=== PATIENT | male | born 1945 | race Caucasian/White ===

== ENCOUNTER 2019-07-13 17:23 | Inpatient (IN) | payer OTHER ==
--- NOTE | 2019-07-13 17:37 | PDOC ---
Rapid Medical Evaluation Medical Evaluation: Vital Signs Temp Pulse Resp BP Pulse Ox 98.4 F 65 18 159/93 99 07/13/19 17:31 07/13/19 17:31 07/13/19 17:31 07/13/19 17:31 07/13/19 17:31 I have performed a brief in-person evaluation of this patient. The patient presents with a chief complaint of: hx of DM, CAD s/p PCI c/o SOB and chest pain x 5 days along with mild cough; denies fever, abd pain, n/v, recent travel, known contact with COVID patient; is retired Pertinent physical exam findings: In NAD, lungs clear I have ordered the following: EKG, CXR, labs D/W Dr. Cheng - no need for isolation The patient will proceed to the ED for further evaluation. 07/13/19 17:35
[2019-07-13 17:57] VITALS: BMI 24.3
[2019-07-13 18:51] LABS: BASO % 0.6 % (0-2.0); EOS % 4.6 % (0-4.5); HEMATOCRIT 37.7 % (35.4-49); MCH 26.3 pg (25.7-33.7); MCHC 31.8 g/dl (32.0-35.9); MEAN CELL VOLUME 82.6 fl (80-96); MEAN PLT VOLUME 8.5 fl (7.5-11.1); MONO % 9.5 % (3.8-10.2); NEUT % 61.3 % (42.8-82.8); PLATELET COUNT 162 K/MM3 (134-434); RBC 4.56 M/mm3 (4.00-5.60); RDW 15.5 % (11.9-15.9); WHITE BLOOD COUNT 5.4 K/mm3 (4.0-10.0)
[2019-07-13 19:39] LABS: ALBUMIN 3.8 g/dl (3.4-5.0); ALK PHOS 48 U/L (45-117); ANION GAP 6 MMOL/L (8-16); BILIRUBIN,TOTAL 0.2 mg/dL (0.2-1); BLOOD UREA NITROGEN 24.5 mg/dL (7-18); CALCIUM 8.8 mg/dL (8.5-10.1); CHLORIDE 103 mmol/L (98-107); CO2 28 mmol/L (21-32); CREATININE 0.9 mg/dL (0.55-1.3); GLUCOSE,RANDOM 110 mg/dL (74-106); N-TERMINAL BNP 108.3 pg/ml (5-125); POTASSIUM 4.6 mmol/L (3.5-5.1); SGOT/AST 24 U/L (15-37); SGPT/ALT 30 U/L (13-61); SODIUM 137 mmol/L (136-145); TOT PROT 6.7 g/dl (6.4-8.2)
[2019-07-13] MEDS ORDERED: SODIUM CHLORIDE 1,000 ML IV STA (19:52)
[2019-07-13 20:40] LABS: LIPASE 92 U/L (73-393)
--- NOTE | 2019-07-14 00:08 | HP ---
CHIEF COMPLAINT: shortness of breath; chest pain PCP: HISTORY OF PRESENT ILLNESS: 74 y/o male with PMH of DM, HTN, CAD s/p stents back in october presents to the ED with complaints of shortness of breath, chest pain, body aches, and diarrhea over the past 4-5 days- he states that this started out of nowhere he lives by himself and has not had any recent travel or any recent exposures; he has not attempted to take anything for this pain; the chest pain he states comes and goes and is not worse with respiration; his exercise tolerance has not changed- he endorses abdominal pain and diarrhea (multiple episodes a day no blood or mucus) - ER course was notable for: (1)vitals stable labs; wnl (2)CXR and CTA negative; COVID pending; Flu/RSV negative (3)given NS 500cc bolus x1 Recent Travel: denies PAST MEDICAL HISTORY: see above PAST SURGICAL HISTORY: CAD s/p stents Social History: Smoking:denies Alcohol:denies Drugs: denies Allergies clindamycin Allergy (Verified 07/13/19 17:45) donepezil [From Aricept] Allergy (Verified 07/13/19 17:45) naproxen [From Naprosyn] Allergy (Verified 07/13/19 17:45) Penicillins Allergy (Verified 07/13/19 17:45) HOME MEDICATIONS: REVIEW OF SYSTEMS CONSTITUTIONAL: Present: weakness Absent: fever, chills, diaphoresis, , malaise, loss of appetite, weight change HEENT: Absent: rhinorrhea, nasal congestion, throat pain, throat swelling, difficulty swallowing, mouth swelling, ear pain, eye pain, visual changes CARDIOVASCULAR: Absent: chest pain, syncope, palpitations, irregular heart rate, lightheadedness, peripheral edema RESPIRATORY: Present: shortness of breath Absent: cough, , dyspnea with exertion, orthopnea, wheezing, stridor, hemoptysis GASTROINTESTINAL: Present: abdominal pain, diarrhea Absent: abdominal distension, nausea, vomiting, constipation, melena, hematochezia GENITOURINARY: Absent: dysuria, frequency, urgency, hesitancy, hematuria, flank pain, genital pain MUSCULOSKELETAL: Absent: myalgia, arthralgia, joint swelling, back pain, neck pain SKIN: Absent: rash, itching, pallor HEMATOLOGIC/IMMUNOLOGIC: Absent: easy bleeding, easy bruising, lymphadenopathy, frequent infections ENDOCRINE: Absent: unexplained weight gain, unexplained weight loss, heat intolerance, cold intolerance NEUROLOGIC: Absent: headache, focal weakness or paresthesias, dizziness, unsteady gait, seizure, mental status changes, bladder or bowel incontinence PSYCHIATRIC: Absent: anxiety, depression, suicidal or homicidal ideation, hallucinations. PHYSICAL EXAMINATION Vital Signs - 24 hr 07/13/19 07/13/19 07/13/19 17:31 17:45 20:47 Temperature 98.4 F 97.8 F Pulse Rate 65 64 Pulse Rate [ 65 Left] Respiratory 18 18 18 Rate Blood Pressure 159/93 184/94 H O2 Sat by Pulse 99 100 100 Oximetry (%) GENERAL: Awake, alert, and fully oriented, in no acute distress. EYES:PEERLA; EOMI; no scleral icterus NECK: no JVD; no lymphadenpoathy LUNGS: CTA B/L; no rales, rhonchi or wheezing HEART: RRR s1 s2; no murmurs/rubs/gallops ABDOMEN: Soft, diffuse abodminal tenderness +BS in all 4 quadrants . MUSCULOSKELETAL: Normal range of motion at all joints. No bony deformities or tenderness. No CVA tenderness. EXTREMITIES: warm; well-perfused no clubbing/cyanosis or edema NEUROLOGICAL: Cranial nerves II-XII intact. Normal speech. Normal gait. PSYCHIATRIC: Cooperative. Good eye contact. Appropriate mood and affect. SKIN: Warm, dry, normal turgor, no rashes or lesions noted, normal capillary refill. Laboratory Results - last 24 hr 07/13/19 07/13/19 07/13/19 18:10 18:10 20:30 WBC 5.4 RBC 4.56 Hgb 12.0 Hct 37.7 MCV 82.6 MCH 26.3 MCHC 31.8 L RDW 15.5 Plt Count 162 MPV 8.5 Absolute Neuts (auto) 3.3 Neutrophils % 61.3 Lymphocytes % 24.0 Monocytes % 9.5 Eosinophils % 4.6 H Basophils % 0.6 Nucleated RBC % 0 Sodium 137 Potassium 4.6 Chloride 103 Carbon Dioxide 28 Anion Gap 6 L BUN 24.5 H Creatinine 0.9 Est GFR (CKD-EPI)AfAm 98.55 Est GFR (CKD-EPI)NonAf 85.03 Random Glucose 110 H Calcium 8.8 Total Bilirubin 0.2 AST 24 ALT 30 Alkaline Phosphatase 48 Troponin I < 0.02 B-Natriuretic Peptide 108.3 Total Protein 6.7 Albumin 3.8 Lipase 92 Influenza A (Rapid) Negative Influenza B (Rapid) Negative RSV Rapid 07/13/19 20:30 WBC RBC Hgb Hct MCV MCH MCHC RDW Plt Count MPV Absolute Neuts (auto) Neutrophils % Lymphocytes % Monocytes % Eosinophils % Basophils % Nucleated RBC % Sodium Potassium Chloride Carbon Dioxide Anion Gap BUN Creatinine Est GFR (CKD-EPI)AfAm Est GFR (CKD-EPI)NonAf Random Glucose Calcium Total Bilirubin AST ALT Alkaline Phosphatase Troponin I B-Natriuretic Peptide Total Protein Albumin Lipase Influenza A (Rapid) Influenza B (Rapid) RSV Rapid Negative ASSESSMENT/PLAN: 74 y/o male with PMH of DM, CAD s/p stents, HTN back in October presents to the ED with complaints of shortness of breath, chest pain, body aches, and diarrhea over the past 4-5 days #Rule out Covid patient is high risk given co-morbidities -covid pending -flu and RSV pending -IVF -repeat CXR in AM -ID consulted -precautions -avoid NSAIDs -tylenol PRN if fever #Chest pain patient had stents placed back in November -trop negative x1 -reepat trops and EKG- -echo ordered -tele monitoring -can consider cardio consult #Diarrhea patient has been having multiple episodes of diarrhea over the past 4-5 days -ab/plevis CT negative -stool cx pending -c diff ordered -IVF #DM ISS ACHS BGMS ACHS Family Medical History Family History: Denies Problem List - Problem (1) Diarrhea Code(s): R19.7 - DIARRHEA, UNSPECIFIED Visit type - Emergency Visit Emergency Visit: Yes ED Registration Date: 07/14/19 Care time: The patient presented to the Emergency Department on the above date and was hospitalized for further evaluation of their emergent condition. - New Patient This patient is new to me today: Yes Date on this admission: 07/14/19 - Critical Care Critical Care patient: No ATTENDING PHYSICIAN STATEMENT I saw and evaluated the patient. I reviewed the resident's note and discussed the case with the resident. I agree with the resident's findings and plan as documented. SUBJECTIVE: OBJECTIVE: ASSESSMENT AND PLAN:
[2019-07-14] MEDS: SODIUM CHLORIDE 1,000 ML IV SCH (00:15)
--- NOTE | 2019-07-14 02:15 | PDOC ---
Documentation entered by De Casas SCRIBE, acting as scribe for Braulio Redman DO. Braulio Redman DO: This documentation has been prepared by the Augusto wagoner Daniel, SCRIBE, under my direction and personally reviewed by me in its entirety. I confirm that the documentation accurately reflects all work, treatment, procedures, and medical decision making performed by me. History of Present Illness - General Chief Complaint: Chest Pain Stated Complaint: COUGH FEVER History Source: Patient Exam Limitations: No Limitations - History of Present Illness Initial Comments: 07/13/19 18:58 The patient is a 74 year old male with a past medical history of HTN, CAD s/p stents, and diabetes here today for evaluation of headache, chest pain, and shortness of breath. The patient reports that he has had 4-5 days of headache, body aches, nasal congestion, chest pain, dry cough, diarrhea, abdominal pain, and intermittent shortness of breath. Patient denies headache, lightheadedness. Denies fever, chills. Denies nausea, vomiting. Denies travel, sick contacts. Allergies: clindamycin, donepezil, naproxen, penicillins Past History - Past Medical History Allergies/Adverse Reactions: Allergies Allergy/AdvReac Type Severity Reaction Status Date / Time clindamycin Allergy Verified 07/13/19 17:45 donepezil [From Aricept] Allergy Verified 07/13/19 17:45 naproxen [From Naprosyn] Allergy Verified 07/13/19 17:45 Penicillins Allergy Verified 07/13/19 17:45 - Psycho Social/Smoking Cessation Hx Smoking History: Never smoked Hx Alcohol Use: No Drug/Substance Use Hx: No Review of Systems - Review of Systems Able to Perform ROS?: Yes Comments:: 07/13/19 19:01 GENERAL/CONSTITUTIONAL: No fever or chills. No weakness. HEAD, EYES, EARS, NOSE AND THROAT: +nasal congestion. No change in vision. No ear pain or discharge. No sore throat. CARDIOVASCULAR: +chest pain. RESPIRATORY: +cough. +shortness of breath. No wheezing, or hemoptysis. GASTROINTESTINAL: No nausea, vomiting, diarrhea or constipation. GENITOURINARY: No dysuria, frequency, or change in urination. MUSCULOSKELETAL: +body aches. No neck or back pain. SKIN: No rash NEUROLOGIC: +headache. No vertigo, loss of consciousness, or change in str ength/sensation. ENDOCRINE: No increased thirst. No abnormal weight change. HEMATOLOGIC/LYMPHATIC: No anemia, easy bleeding, or history of blood clots. ALLERGIC/IMMUNOLOGIC: No hives or skin allergy. *Physical Exam - Vital Signs Last Vital Signs Temp Pulse Resp BP Pulse Ox 97.8 F 64 18 184/94 H 100 07/13/19 17:45 07/13/19 17:45 07/13/19 17:45 07/13/19 17:45 07/13/19 17:45 - Physical Exam 07/13/19 19:06 GENERAL: Awake, alert, and fully oriented, in no acute distress HEAD: No signs of trauma EYES: PERRLA, EOMI, sclera anicteric, conjunctiva clear ENT: Auricles normal inspection, hearing grossly normal, nares patent, oropharynx clear without exudates. Moist mucosa NECK: Normal ROM, supple, no lymphadenopathy, JVD, or masses LUNGS: Speaking in full sentences. Breath sounds equal, clear to auscultation bilaterally. No wheezes, and no crackles HEART: +hypertensive. Regular rate and rhythm, normal S1 and S2, no murmurs, rubs or gallops ABDOMEN: +left lower quadrant tenderness. Soft, normoactive bowel sounds. No guarding, no rebound. No masses EXTREMITIES: Normal range of motion, no edema. No clubbing or cyanosis. No cords, erythema, or tenderness NEUROLOGICAL: Cranial nerves II through XII grossly intact. Normal speech, normal gait SKIN: Warm, Dry, normal turgor, no rashes or lesions noted. Heart Score/ECG Review - ECG Intrepretation Comment:: 07/13/19 19:08 Normal sinus at 68, normal axis and intervals, no acute ischemia, performed at 1741 ED Treatment Course - LABORATORY CBC & Chemistry Diagram: 07/13/19 18:10 07/13/19 18:10 - ADDITIONAL ORDERS Additional order review: 07/13/19 18:10 RBC 4.56 MCV 82.6 MCHC 31.8 L RDW 15.5 MPV 8.5 Neutrophils % 61.3 Lymphocytes % 24.0 Monocytes % 9.5 Eosinophils % 4.6 H Basophils % 0.6 Medical Decision Making - Medical Decision Making 07/13/19 19:07 74 year old male here with flu like symptoms, diarrhea, abdominal pain, cough, chest pain. Will evaluate for flu vs diverticulitis, COVID. Will order CT chest with and without contrast and CT abdomen pelvis with contrast. Will obtain cardiac enzymes. Will admit for chest pain and COVID rule out. 07/13/19 22:45 Imaging negative, will reassess and admit for chest pain.
[2019-07-14] MEDS: ACETAMINOPHEN 325 MG TABLET (FP) PO PRN ×2 (02:26→22:47)
[2019-07-14] MEDS ORDERED: LOPERAMIDE HCL 2 MG CAPSULE PO PRN (03:50)
--- NOTE | 2019-07-14 04:45 | PN ---
Teaching Attending Note Name of Resident: Bebe Young ATTENDING PHYSICIAN STATEMENT I saw and evaluated the patient. I reviewed the resident's note and discussed the case with the resident. I agree with the resident's findings and plan as documented. SUBJECTIVE: 74-year-old male with a history of uncontrolled diabetes, CAD status post stent, hypertension complaining of shortness of breath, body aches, chest pain, diarrhea which started about 4 days ago. Patient lives by himself and has not had any recent travels or recent exposure to any sick contacts. His exercise tolerance has not changed. Patient does complain of some loose stools and has not taken any antibiotics recently. OBJECTIVE: Last Vital Signs Temp Pulse Resp BP Pulse Ox 98.4 F 74 18 138/82 100 07/14/19 04:13 07/14/19 04:13 07/14/19 04:13 07/14/19 04:13 07/14/19 04:13 On physical exam patient was not any acute distress, is resting comfortably. He is speaking full sentences, no cough was observed. Chest was clear to auscultation bilaterally. Cardiovascular exam was S1, S2 regular rate and rhythm. No murmurs appreciated. Abdomen was soft, nontender lower extremities without any pedal edema or cyanosis or clubbing appreciated. Abnormal Lab Results 07/13/19 07/13/19 18:10 18:10 MCHC 31.8 L Eosinophils % 4.6 H Anion Gap 6 L BUN 24.5 H Random Glucose [address] was performed and showed no acute pathology. No evidence of central pulmonary embolism. 2 cm left thyroid lobe nodule is seen. EKG was essentially normal, no ischemic changes ASSESSMENT AND PLAN: Chest pain, rule out ACS, rule out covid 19. Lungs were clear on imaging, no effusions or infiltrates were noted. Admit to telemetry Trend troponin rule out covid 19 Tylenol if fever Straight contact and airborne isolation Infectious disease consultation #Thyroid nodule Send TSH Thyroid ultrasound can be done as an outpatient #CAD Statin Aspirin #Diabetes mellitus A1c NovoLog sliding scale Diabetic diet DVT prophylaxisheparin subcutaneously
[2019-07-14] MEDS: INSULIN SLIDING SCALE (NOVOLOG) 1 VIAL SQ SCH ×4 (07:17→22:35)
[2019-07-14 09:45] LABS: EOS % 5.8 % (0-4.5); HEMOGLOBIN 11.2 GM/dL (11.7-16.9); LYMPH % 29.6 % (8-40); MCHC 32.9 g/dl (32.0-35.9); MEAN CELL VOLUME 82.1 fl (80-96); MEAN PLT VOLUME 8.8 fl (7.5-11.1); MONO % 10.7 % (3.8-10.2); NEUT % 52.9 % (42.8-82.8); PLATELET COUNT 142 K/MM3 (134-434); RBC 4.15 M/mm3 (4.00-5.60); WHITE BLOOD COUNT 3.5 K/mm3 (4.0-10.0)
[2019-07-14 10:14] LABS: ALBUMIN 3.1 g/dl (3.4-5.0); ALK PHOS 43 U/L (45-117); ANION GAP 7 MMOL/L (8-16); BILIRUBIN,TOTAL 0.2 mg/dL (0.2-1); BLOOD UREA NITROGEN 15.4 mg/dL (7-18); CALCIUM 8.3 mg/dL (8.5-10.1); CHLORIDE 107 mmol/L (98-107); CO2 27 mmol/L (21-32); CREATININE 0.7 mg/dL (0.55-1.3); GLUCOSE,RANDOM 129 mg/dL (74-106); MAGNESIUM 2.2 mg/dL (1.8-2.4); PHOSPHOROUS 3.2 mg/dL (2.5-4.9); POTASSIUM 4.2 mmol/L (3.5-5.1); SGOT/AST 19 U/L (15-37); SGPT/ALT 25 U/L (13-61); SODIUM 140 mmol/L (136-145); TOT PROT 5.7 g/dl (6.4-8.2)
--- NOTE | 2019-07-14 11:00 | PN ---
Physical Exam: SUBJECTIVE: Patient seen and examined OBJECTIVE: Vital Signs Period Temp Pulse Resp BP Sys/Mensah Pulse Ox Last 24 Hr 97.8 F-98.4 F 64-74 18-18 104-184/66-94 99-100 GENERAL: The patient is awake, alert, and fully oriented, in no acute distress. HEAD: Normal with no signs of trauma. EYES: PERRL, extraocular movements intact, sclera anicteric, conjunctiva clear. No ptosis. ENT: Ears normal, nares patent, oropharynx clear without exudates, moist mucous membranes. NECK: Trachea midline, full range of motion, supple. LUNGS: Breath sounds equal, clear to auscultation bilaterally, no wheezes, no crackles, no accessory muscle use. HEART: Regular rate and rhythm, S1, S2 without murmur, rub or gallop. ABDOMEN: Soft, nontender, nondistended, normoactive bowel sounds, no guarding, no rebound, no hepatosplenomegaly, no masses. EXTREMITIES: 2+ pulses, warm, well-perfused, no edema. NEUROLOGICAL: Cranial nerves II through XII grossly intact. Normal speech, gait not observed. PSYCH: Normal mood, normal affect. SKIN: Warm, dry, normal turgor, no rashes or lesions noted Laboratory Results - last 24 hr 07/13/19 07/13/19 07/13/19 18:10 18:10 20:30 WBC 5.4 RBC 4.56 Hgb 12.0 Hct 37.7 MCV 82.6 MCH 26.3 MCHC 31.8 L RDW 15.5 Plt Count 162 MPV 8.5 Absolute Neuts (auto) 3.3 Neutrophils % 61.3 Lymphocytes % 24.0 Monocytes % 9.5 Eosinophils % 4.6 H Basophils % 0.6 Nucleated RBC % 0 Sodium 137 Potassium 4.6 Chloride 103 Carbon Dioxide 28 Anion Gap 6 L BUN 24.5 H Creatinine 0.9 Est GFR (CKD-EPI)AfAm 98.55 Est GFR (CKD-EPI)NonAf 85.03 POC Glucometer Random Glucose 110 H Lactic Acid Calcium 8.8 Phosphorus Magnesium Ferritin Total Bilirubin 0.2 AST 24 ALT 30 Alkaline Phosphatase 48 Creatine Kinase Troponin I < 0.02 B-Natriuretic Peptide 108.3 Total Protein 6.7 Albumin 3.8 Lipase 92 Influenza A (Rapid) Negative Influenza B (Rapid) Negative RSV Rapid 07/13/19 07/14/19 07/14/19 20:30 01:00 01:10 WBC RBC Hgb Hct MCV MCH MCHC RDW Plt Count MPV Absolute Neuts (auto) Neutrophils % Lymphocytes % Monocytes % Eosinophils % Basophils % Nucleated RBC % Sodium Potassium Chloride Carbon Dioxide Anion Gap BUN Creatinine Est GFR (CKD-EPI)AfAm Est GFR (CKD-EPI)NonAf POC Glucometer Random Glucose Lactic Acid 1.1 Calcium Phosphorus Magnesium Ferritin 57.7 Total Bilirubin AST ALT Alkaline Phosphatase Creatine Kinase 124 Troponin I 0.02 B-Natriuretic Peptide Total Protein Albumin Lipase Influenza A (Rapid) Influenza B (Rapid) RSV Rapid Negative 07/14/19 07/14/19 07/14/19 06:59 08:10 08:10 WBC 3.5 L RBC 4.15 Hgb 11.2 L Hct 34.0 L MCV 82.1 MCH 27.0 MCHC 32.9 RDW 15.0 Plt Count 142 MPV 8.8 Absolute Neuts (auto) 1.8 Neutrophils % 52.9 Lymphocytes % 29.6 D Monocytes % 10.7 H Eosinophils % 5.8 H Basophils % 1.0 Nucleated RBC % 0 Sodium 140 Potassium 4.2 Chloride 107 Carbon Dioxide 27 Anion Gap 7 L BUN 15.4 Creatinine 0.7 Est GFR (CKD-EPI)AfAm 109.27 Est GFR (CKD-EPI)NonAf 94.28 POC Glucometer 141 Random Glucose 129 H Lactic Acid Calcium 8.3 L Phosphorus 3.2 Magnesium 2.2 Ferritin Total Bilirubin 0.2 AST 19 ALT 25 Alkaline Phosphatase 43 L Creatine Kinase Troponin I < 0.02 B-Natriuretic Peptide Total Protein 5.7 L Albumin 3.1 L Lipase Influenza A (Rapid) Influenza B (Rapid) RSV Rapid Active Medications Generic Name Dose Route Start Last Admin Trade Name Freq PRN Reason Stop Dose Admin Acetaminophen 650 mg 07/14/19 00:09 07/14/19 02:26 Tylenol - PO 650 mg Q6H PRN Administration Fever Or Pain Sodium Chloride 1,000 mls @ 75 mls/hr 07/14/19 00:15 07/14/19 00:15 Normal Saline - IV 75 mls/hr ASDIR DEBRA Administration Insulin Aspart 0 vial 07/14/19 07:00 07/14/19 07:17 Novolog Vial Sliding Scale - SQ Not Given ACHS DEBRA Protocol Loperamide HCl 4 mg 07/14/19 03:50 Imodium - PO Q6H PRN DIARRHEA ASSESSMENT/PLAN: 74 y/o male with PMH of DM, CAD s/p stents, HTN back in October presents to the ED with complaints of shortness of breath, chest pain, body aches, and diarrhea over the past 4-5 days #Rule out Covid patient is high risk given co-morbidities -covid pending -flu and RSV pending -IVF -repeat CXR in AM -ID consulted -precautions -avoid NSAIDs -tylenol PRN if fever #Chest pain patient had stents placed back in November -trop negative x1 -reepat trops and EKG- -echo ordered -tele monitoring -can consider cardio consult #Diarrhea patient has been having multiple episodes of diarrhea over the past 4-5 days -ab/plevis CT negative -stool cx pending -c diff ordered -IVF #DM ISS ACHS BGMS ACHS ATTENDING PHYSICIAN STATEMENT I saw and evaluated the patient. I reviewed the resident's note and discussed the case with the resident. I agree with the resident's findings and plan as documented. SUBJECTIVE: OBJECTIVE: ASSESSMENT AND PLAN:
--- NOTE | 2019-07-14 15:54 | PN ---
Progress Note (short form) - Note Progress Note: ID consult dictated imp/reccd 74 yo man admitted from home with complaints of sore throat, chest pain with rest and loose stools cta of chest and ct abd/pelvis done- both negative also noted runny nose and occasional headache agree with r/o covid 19 agree with stool w/u (he denies recent antibiotics use) eosinophilia obtain med list chest pain eval history of stent in october continue to observe on telemetry he has no signs of pneumonia on ct scan and is not hypoxic at this time
--- NOTE | 2019-07-14 16:12 | CON.CARD ---
Consult Consult Specialty:: cardiology Reason for Consultation:: HTN; chest pain - History of Present Illness Chief Complaint: Pt A&OX3; no chest pain presently; no dyspnea or palpitations; abdomen is "sore". History of Present Illness: Mr. Hidalgo is a 74 year old man with a past medical history of HTN, CAD s/p stent (at [facility], 10/2018), diabetes, s/p TKR, followed years later by partial knee replacement, here today for evaluation of headache, chest pain, and shortness of breath. The patient reports that he has had several days of headac he, body aches, nasal congestion, chest pain, dry cough, diarrhea, abdominal pain, and intermittent shortness of breath. Pt is on metoprolol ER, amlodipine, and lisinopril at home for HTN: last doses ?yesterday. Patient denies headache, lightheadedness. Denies fever, chills. Denies nausea, vomiting. Denies travel, sick contacts. Allergies: clindamycin, donepezil, naproxen, penicillins - History Source History Provided By: Patient, Medical Record Limitations to Obtaining History: No Limitations - Past Medical History Cardio/Vascular: Yes: HTN - Past Surgical History Past Surgical History: Yes: Joint Replacement (left knee), Stent (coronary: 10/24 019 at [facility]) - Alcohol/Substance Use Hx Alcohol Use: No - Smoking History Smoking history: Never smoked Have you smoked in the past 12 months: No Home Medications - Allergies Allergies/Adverse Reactions: Allergies Allergy/AdvReac Type Severity Reaction Status Date / Time clindamycin Allergy Verified 07/13/19 17:45 donepezil [From Aricept] Allergy Verified 07/13/19 17:45 naproxen [From Naprosyn] Allergy Verified 07/13/19 17:45 Penicillins Allergy Verified 07/13/19 17:45 - Home Medications Home Medications: Ambulatory Orders Amlodipine Benzoate 10 mg PO DAILY 07/14/19 Atorvastatin Ca [Lipitor] 40 mg PO HS 07/14/19 Hydroxychloroquine Sulfate 200 mg PO BID 07/14/19 Lisinopril/Hydrochlorothiazide [Lisinopril-Hctz 20-12.5 mg Tab] 1 each PO DAILY 07/14/19 Metoclopramide HCl 10 mg PO BID 07/14/19 Metoprolol Succinate 25 mg PO DAILY 07/14/19 Omeprazole 40 mg PO DAILY 07/14/19 Pioglitazone HCl [Actos] 15 mg PO DAILY 07/14/19 Sitagliptin Phos/Metformin HCl [Janumet 50-1,000 mg Tablet] 1 each PO BID 07/14/19 Ticagrelor [Brilinta] 90 mg PO DAILY 07/14/19 Family Medical History Family History: Denies Review of Systems - Review of Systems Constitutional: reports: No Symptoms Eyes: reports: No Symptoms HENT: reports: No Symptoms Neck: reports: No Symptoms Cardiovascular: reports: Chest Pain Respiratory: reports: No Symptoms Gastrointestinal: reports: Abdominal Pain Genitourinary: reports: No Symptoms Breasts: reports: No Symptoms Reported Musculoskeletal: reports: Joint Pain Integumentary: reports: No Symptoms Neurological: reports: No Symptoms Endocrine: reports: No Symptoms Hematology/Lymphatic: reports: No Symptoms Psychiatric: reports: No Symptoms - Risk Factors Known Risk Factors: Yes: Age, Diabetes Mellitus, Gender, Hypercholesterolemia, Hypertension, Race, Other (CAD-->coronary stent 10/2018) Vital Signs: Vital Signs Temperature 98.0 F 07/14/19 14:00 Pulse Rate 74 07/14/19 14:00 Respiratory Rate 16 07/14/19 14:00 Blood Pressure 108/66 07/14/19 14:00 O2 Sat by Pulse Oximetry (%) 100 07/14/19 09:00 Abnormal Lab Results 07/14/19 07/14/19 07/14/19 08:10 08:10 08:10 WBC 3.5 L Hgb 11.2 L Hct 34.0 L Monocytes % 10.7 H Eosinophils % 5.8 H Anion Gap 7 L Random Glucose 129 H Hemoglobin A1c % 6.8 H Calcium 8.3 L Alkaline Phosphatase 43 L Total Protein 5.7 L Albumin 3.1 L HDL Cholesterol 66 H Constitutional: Yes: Anxious Eyes: Yes: WNL HENT: Yes: WNL Neck: Yes: WNL Respiratory: Yes: WNL Gastrointestinal: Yes: Soft Renal/: No: Anuria Heart Sounds: Yes: S1, S2 Musculoskeletal: Yes: Joint Stiffness Extremities: Yes: Cold Edema: Yes Edema: LLE: 1+, RLE: 1+ Peripheral Pulses WNL: Yes Integumentary: Yes: Venous Stasis Changes, Other (hyperpigmented macular lesions LEs, especially ankles) Neurological: Yes: Alert, Oriented Psychiatric: Yes: WNL - Other Data Labs, Other Data: CBC, BMP 07/14/19 08:10 07/14/19 08:10 Troponin, BNP 07/13/19 07/14/19 07/14/19 18:10 01:10 08:10 Troponin I < 0.02 0.02 < 0.02 B-Natriuretic Peptide 108.3 Troponin, BNP 07/13/19 07/14/19 07/14/19 18:10 01:10 08:10 Troponin I < 0.02 0.02 < 0.02 B-Natriuretic Peptide 108.3 Abnormal Lab Results 07/14/19 07/14/19 07/14/19 08:10 08:10 08:10 WBC 3.5 L Hgb 11.2 L Hct 34.0 L Monocytes % 10.7 H Eosinophils % 5.8 H Anion Gap 7 L Random Glucose 129 H Hemoglobin A1c % 6.8 H Calcium 8.3 L Alkaline Phosphatase 43 L Total Protein 5.7 L Albumin 3.1 L HDL Cholesterol 66 H Prior Cardiac Procedures: Cardiac Catheterization, PTCA with Stent Imaging - Results Chest X-ray: Image Reviewed Cat Scan: Image Reviewed EKG: Image Reviewed Assessment/Plan 1. CAD-->coronary stent 10/2018 at [facility] (? no hx [place]); chest pain (diffuse anterior, 8/10 in intensity, both heavy and sharp, lasting a few minutes, returning a few times a day for the past few weeks (pt also had similar pain several weeks after stent; says he had some tests and was told by his electrotype finisher it "wasn't the heart"). 2. HTN 3. DM 4. hyperlipidemia 5. Diarrhea 6. leukopenia; abdominal pain/diarrhea 7. thyroid nodule Plan: TNI < 0.02 x 3. EKG: NSR; no acute ST-T changes. Restart antihypertensive medications (begin with metoprolol ER and follow HR and BP response before restarting lisinopril and amlodipine). ECHO for LVEF, chamber sizes, wall motion, and valve status. ASA 81 mg daily and Tacagrelor 60 mg bid. On atorvastatin 40 mg daily. Obtain prior cardiac records; may require further coronary artery evaluation. Incidental finding of thyroid nodule; TSH WNL.
--- NOTE | 2019-07-14 16:14 | PN ---
Progress Note (short form) - Note Progress Note: While doing pt's med rec found out he had been on hydroxyCQ chronically for Rh Arthritis with MTX 20mg weekly and daily F/acid 1mg per Compound Machine Operator - Dr Beck at [phone] with Antonio She wants to be informed of his COVID status. She advises to continue HydroxyCQ 200mg bid and hold Mtx and folic acid. She has been treating him for about 1 year
[2019-07-14] MEDS ORDERED: TICAGRELOR 90 MG TABLET PO SCH (16:15)
[2019-07-14] MEDS ORDERED: metoPROLOL SUCCINATE 25 MG TAB.SR.24H (FP) PO SCH (16:15)
[2019-07-14 17:12] LABS: CHOLESTEROL 112 mg/dL (50-200); HDL CHOLESTEROL 66 mg/dL (40-60); LDL CHOLESTEROL (ONLY SJRH) 41 mg/dL (5-100); TRIGLYCERIDES 60 mg/dL (0-150)
--- NOTE | 2019-07-14 17:21 | PN ---
Progress Note, Physician History of Present Illness: 74 year old male with a past medical history of HTN, RA, CAD s/p PCI in October, a nd DM II came with c/c sore throat, left and right chest pain, shortness of breath, and loose stools x 4 days admitted to rule out COVID -19. Today: Patient seen and examined at bedside in [facility]. States he has had diarrhea x 4 days loose stools and no hx of eating anything un usual . States he also had chills and rhinorrea/sore throat and pains generalized myalgias. - Current Medication List Current Medications: Active Medications Acetaminophen (Tylenol -) 650 mg PO Q6H PRN PRN Reason: Fever Or Pain Last Admin: 07/14/19 02:26 Dose: 650 mg Documented by: Amlodipine Besylate (Norvasc -) 10 mg PO DAILY [facility] Atorvastatin Calcium (Lipitor -) 40 mg PO HS [facility] Hydroxychloroquine Sulfate (Plaquenil -) 200 mg PO BID [facility] Sodium Chloride (Normal Saline -) 1,000 mls @ 75 mls/hr IV ASDIR [facility] Last Admin: 07/14/19 00:15 Dose: 75 mls/hr Documented by: Insulin Aspart (Novolog Vial Sliding Scale -) 0 vial SQ ACHS [facility]; Protocol Last Admin: 07/14/19 13:21 Dose: 4 units Documented by: Lisinopril (Prinivil) 20 mg PO DAILY [facility] Loperamide HCl (Imodium -) 4 mg PO Q6H PRN PRN Reason: DIARRHEA Metoclopramide HCl (Reglan -) 10 mg PO BID@1100,1630 [facility] Metoprolol Succinate (Toprol Xl -) 25 mg PO DAILY [facility] Pantoprazole Sodium (Protonix -) 40 mg PO DAILY [facility] Ticagrelor (Brilinta -) 90 mg PO DAILY [facility] - Objective Vital Signs: Vital Signs Temperature 98.0 F 07/14/19 14:00 Pulse Rate 74 07/14/19 14:00 Respiratory Rate 16 07/14/19 14:00 Blood Pressure 108/66 07/14/19 14:00 O2 Sat by Pulse Oximetry (%) 100 07/14/19 09:00 Constitutional: Yes: Thin Cardiovascular: Yes: WNL Respiratory: Yes: WNL Gastrointestinal: Yes: Soft, Tenderness Extremities: Yes: WNL Labs: CBC, BMP 07/14/19 08:10 07/14/19 08:10 Impression/Plan Impression/Plan: R/O COVID-19 Influenza A/B neg RSV neg CTA Chest unremarkable Contact Isolation Tylenol PRN fever Acute Diarrhea CTAbd /Pelvis unremarkable STool studies O&P/Cx/WBC Thyroid Nodule TSH and f/u O/P 2 cm left thyroid lobe nodule is seen on CT DMI II HbA1C And ISS CAD S/P PCI /HTN Amlodipine 10 mg daily Lisinopril 20 mg daily ASA and Brillinta continue Atorvastatin 40 mg qhs Metoprolol succinate 25 mg q daily Rheumatoid Arthritis On Methotrexate 20 mg q weekly and Folic acid On hydroxyCQ 200 mg BID Per his RA will hold off MTX Supportive Care: DVT Px HSQ 5K BID Reg DM Diet Visit type - Emergency Visit Emergency Visit: Yes ED Registration Date: 07/14/19 Care time: The patient presented to the Emergency Department on the above date and was hospitalized for further evaluation of their emergent condition. - New Patient This patient is new to me today: Yes Date on this admission: 07/14/19 - Critical Care Critical Care patient: No - Discharge Referral Referred to [facility] No
[2019-07-14] MEDS: PANTOPRAZOLE 40 MG TABLET PO SCH (18:25)
[2019-07-14] MEDS: metoPROLOL SUCCINATE 25 MG TAB.SR.24H (FP) PO SCH (18:26)
[2019-07-14] MEDS: METOCLOPRAMIDE HCL 10 MG TABLET (FP) PO SCH (18:26)
[2019-07-14 18:38] LABS: URINE APPEARANCE CLEAR; URINE BILIRUBIN NEGATIVE (NEGATIVE); URINE COLOR YELLOW; URINE GLUCOSE (UA) NEGATIVE (NEGATIVE); URINE KETONE NEGATIVE (NEGATIVE); URINE LEUK ESTERASE NEGATIVE (NEGATIVE); URINE NITRITE NEGATIVE (NEGATIVE); URINE PROTEIN NEGATIVE (NEGATIVE); URINE UROBILINOGEN 0.2 mg/dL (0.2-1.0)
[2019-07-14] MEDS ORDERED: HEPARIN NA (PORCINE) 5,000 UNITS/ML 1ML VIAL SQ SCH (22:00)
[2019-07-14] MEDS ORDERED: PT OWN MED DRAWER 7, Y5N ONE ×2 (22:04→22:07)
[2019-07-14] MEDS: TICAGRELOR 60 MG TABLET PO SCH (22:35)
[2019-07-14] MEDS: LISINOPRIL 20 MG TABLET (FP) PO SCH (22:35)
[2019-07-14] MEDS: ATORVASTATIN CA 40 MG TABLET (FP) PO SCH (22:35)
[2019-07-14] MEDS: amLODIPine BESYLATE 10 MG TABLET (FP) PO SCH (22:35)
[2019-07-14] MEDS: HYDROXYCHLOROQUINE SO4 200 MG TABLET (FP) PO SCH (22:35)
[2019-07-14] MEDS: HEPARIN NA (PORCINE) 5,000 UNITS/ML 1ML VIAL SQ SCH (22:35)
[2019-07-15] MEDS ORDERED: MAGNESIUM HYDROX 2400MG/30ML ORAL SUSPENSION 30 ML CUP PO ONE (04:35)
[2019-07-15] MEDS: SODIUM CHLORIDE 1,000 ML IV SCH (05:13)
[2019-07-15] MEDS: INSULIN SLIDING SCALE (NOVOLOG) 1 VIAL SQ SCH ×4 (06:14→22:45)
[2019-07-15 08:12] LABS: BASO % 0.9 % (0-2.0); EOS % 5.8 % (0-4.5); HEMATOCRIT 32.1 % (35.4-49); HEMOGLOBIN 10.8 GM/dL (11.7-16.9); MCH 27.2 pg (25.7-33.7); MCHC 33.5 g/dl (32.0-35.9); MEAN CELL VOLUME 81.2 fl (80-96); MEAN PLT VOLUME 8.2 fl (7.5-11.1); MONO % 9.2 % (3.8-10.2); NEUT % 51.1 % (42.8-82.8); PLATELET COUNT 137 K/MM3 (134-434); RBC 3.95 M/mm3 (4.00-5.60); RDW 15.2 % (11.9-15.9); WHITE BLOOD COUNT 3.4 K/mm3 (4.0-10.0)
[2019-07-15 08:42] LABS: BILIRUBIN,TOTAL 0.2 mg/dL (0.2-1); BLOOD UREA NITROGEN 14.2 mg/dL (7-18); CALCIUM 8.4 mg/dL (8.5-10.1); CREATININE 0.9 mg/dL (0.55-1.3); MAGNESIUM 2.1 mg/dL (1.8-2.4); PHOSPHOROUS 3.2 mg/dL (2.5-4.9); POTASSIUM 4.8 mmol/L (3.5-5.1); TOT PROT 5.3 g/dl (6.4-8.2)
[2019-07-15] MEDS ORDERED: PT OWN MED DRAWER 7, Y5N ONE (10:12)
--- NOTE | 2019-07-15 10:25 | CONS ---
DATE OF CONSULTATION: DATE OF DICTATION: 07/14/2019 INFECTIOUS DISEASE CONSULTATION HISTORY OF PRESENT ILLNESS: This is a 74-year-old man. He is admitted from home with a multitude of complaints he has had off and on for the last month. He has had some loose stools, sore throat, chest discomfort. He had some cough that resolved. This has all been going on for the last 2 to 4 weeks. He tried to seek care at [facility] which is his regular doctor. They were closed. He tried to seek care at the [place]. That was not possible as well. He has no history of any travel, but he has been in contact with his 2 nieces, one of which traveled to [place]. He lives alone and is retired and also he lives in [place]. ALLERGIES: CLINDAMYCIN which gives him hives, DONEPEZIL, NAPROXEN and HE IS ALLERGIC TO PENICILLIN which causes him to swell up. PRIMARY DOCTOR: At [facility]. PAST MEDICAL HISTORY: He says is notable for diabetes, hypertension, coronary artery disease. 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 SURGICAL HISTORY: Notable for the fact that he has had 2 left knee replacements. SOCIAL HISTORY: He denies alcohol, cigarette or substance use. He lives alone. He is retired. REVIEW OF SYSTEMS: He reports he has been having nonbloody diarrhea at home up to 4 times a day and generalized abdominal pain. Review of systems is as per HPI. He notes that he has chest pain that is sometimes right-sided and sometimes left-sided and occurs both with exertion and at rest. MEDICATION: List has not been verified. I called the resident in charge of his care and asked her to please call his pharmacy. He reports he takes 8 or 9 pills a day. PHYSICAL EXAMINATION: General: He is awake and alert. He has no cough and is resting comfortably. He is a pleasant man in no acute distress. Vital Signs: His temperature is 98. He has had no fever since admission. Pulse is 74, blood pressure 108/66, respiratory rate 16. He is saturating 100%. He was saturating 100% on admission. HEENT: He is normocephalic. His eyes are anicteric. Neck: Supple. Lungs: Clear to auscultation. Heart: Regular rate and rhythm. Abdomen: Soft. He has diffuse discomfort on palpation everywhere. Extremities: Without edema. DIAGNOSTIC DATA: White count is 3.5, hemoglobin 11.2. Platelets are 142. He has 5% eosinophils and 29% polys. His BUN is 15 and creatinine 0.7. His LFTs are normal and his influenza screen and RSV tests are negative. COVID-19 PCR is pending. He had a CAT scan of his chest, abdomen and pelvis. He has no evidence of PE. He has no infiltrate on chest CT and the abdominal CAT scan as well is unremarkable. In summary, this is a 74-year-old man admitted from home with complaints of sore throat, chest pain with rest and loose stools. CTA of chest and CT abdomen and pelvis are both negative. I would agree with rule out COVID-19. I would agree with stool workup as he also is noted to have an eosinophilia. I think we need to obtain his medication list. Chest pain evaluation given the history of stents. Would continue to observe him on telemetry. He has no signs of pneumonia on CAT scan and he is not hypoxic at this time, so would await his PCR result. Case was discussed with the resident. JENNYFER AVILA M.D. [id number]
[2019-07-15] MEDS: PANTOPRAZOLE 40 MG TABLET PO SCH (10:31)
[2019-07-15] MEDS: HEPARIN NA (PORCINE) 5,000 UNITS/ML 1ML VIAL SQ SCH ×2 (10:31→22:45)
[2019-07-15] MEDS: TICAGRELOR 60 MG TABLET PO SCH ×2 (10:31→22:45)
[2019-07-15] MEDS: amLODIPine BESYLATE 10 MG TABLET (FP) PO SCH (10:31)
[2019-07-15] MEDS: LISINOPRIL 20 MG TABLET (FP) PO SCH (10:31)
[2019-07-15] MEDS: HYDROXYCHLOROQUINE SO4 200 MG TABLET (FP) PO SCH ×2 (10:31→22:45)
[2019-07-15] MEDS: metoPROLOL SUCCINATE 25 MG TAB.SR.24H (FP) PO SCH (10:32)
[2019-07-15] MEDS ORDERED: BISACODYL 10 MG SUPP.RECT PR PRN (11:03)
[2019-07-15] MEDS: METOCLOPRAMIDE HCL 10 MG TABLET (FP) PO SCH ×2 (12:00→18:04)
--- NOTE | 2019-07-15 12:48 | PN ---
Progress Note (short form) - Note Progress Note: still with intermittent chest discomfort still with constipation takes plaquenil for RA! Vital Signs Period Temp Pulse Resp BP Sys/Mensah Pulse Ox Last 24 Hr 96.8 F-98.0 F 58-74 16-18 108-137/66-72 99 cor-rrr lungs clear abd soft,mild discomfort on palpation ext no edema CBC, BMP 07/15/19 07:05 07/15/19 07:05 a/p agree with r/o covid 19 agree with stool w/u (he denies recent antibiotics use) eosinophilia obtain med list chest pain eval history of stent in october continue to observe he has no signs of pneumonia on ct scan and is not hypoxic at this time
--- NOTE | 2019-07-15 14:24 | PN ---
Progress Note, Physician History of Present Illness: 74 year old male with a past medical history of HTN, RA, CAD s/p PCI in October, a nd DM II came with c/c sore throat, left and right chest pain, shortness of breath, and loose stools x 4 days admitted with Viral Symptoms rule out( COVID - 19) and chest pain AMI ruled out in setting of PCI <1 year. Today: Patient seen and examined at bedside in [facility]. States no longer has diarrhea has constipation now . Denies any feelings of fevers/chills. Denies any n/v. States he feels better with the NC on but not hypoxic . - Current Medication List Current Medications: Active Medications Acetaminophen (Tylenol -) 650 mg PO Q6H PRN PRN Reason: Fever Or Pain Last Admin: 07/14/19 22:47 Dose: 650 mg Documented by: Amlodipine Besylate (Norvasc -) 10 mg PO DAILY [facility] Last Admin: 07/15/19 10:31 Dose: 10 mg Documented by: Atorvastatin Calcium (Lipitor -) 40 mg PO HS [facility] Last Admin: 07/14/19 22:35 Dose: 40 mg Documented by: Bisacodyl (Dulcolax Suppository -) 10 mg PA DAILY PRN PRN Reason: CONSTIPATION Heparin Sodium (Porcine) (Heparin -) 5,000 unit SQ BID [facility] Last Admin: 07/15/19 10:31 Dose: 5,000 unit Documented by: Hydroxychloroquine Sulfate (Plaquenil -) 200 mg PO BID [facility] Last Admin: 07/15/19 10:31 Dose: 200 mg Documented by: Sodium Chloride (Normal Saline -) 1,000 mls @ 75 mls/hr IV ASDIR [facility] Last Admin: 07/15/19 05:13 Dose: 75 mls/hr Documented by: Insulin Aspart (Novolog Vial Sliding Scale -) 0 vial SQ ACHS [facility]; Protocol Last Admin: 07/15/19 12:00 Dose: 4 units Documented by: Lisinopril (Prinivil) 20 mg PO DAILY [facility] Last Admin: 07/15/19 10:31 Dose: 20 mg Documented by: Loperamide HCl (Imodium -) 4 mg PO Q6H PRN PRN Reason: DIARRHEA Metoclopramide HCl (Reglan -) 10 mg PO BID@1100,1630 [facility] Last Admin: 07/15/19 12:00 Dose: 10 mg Documented by: Metoprolol Succinate (Toprol Xl -) 25 mg PO DAILY [facility] Last Admin: 07/15/19 10:32 Dose: 25 mg Documented by: Pantoprazole Sodium (Protonix -) 40 mg PO DAILY [facility] Last Admin: 07/15/19 10:31 Dose: 40 mg Documented by: Ticagrelor (Brilinta) 60 mg PO BID [facility] Last Admin: 07/15/19 10:31 Dose: 60 mg Documented by: - Objective Vital Signs: Vital Signs Temperature 98.1 F 07/15/19 14:00 Pulse Rate 68 07/15/19 14:00 Respiratory Rate 20 07/15/19 14:00 Blood Pressure 132/76 07/15/19 14:00 O2 Sat by Pulse Oximetry (%) 99 07/14/19 21:00 Constitutional: Yes: Well Nourished Cardiovascular: Yes: WNL Respiratory: Yes: WNL Gastrointestinal: Yes: WNL Labs: CBC, BMP 07/15/19 07:05 07/15/19 07:05 Impression/Plan Impression/Plan: 74 year old male with a past medical history of HTN, RA, CAD s/p PCI in October, and DM II came with c/c sore throat, left and right chest pain, shortness of breath, and loose stools x 4 days admitted with Viral Symptoms rule out( COVID - 19) and chest pain AMI ruled out in setting of PCI <1 year/ (PE ruled out by CTA) R/O COVID-19 /PE ruled out by CTA Leukopenic but also on residential MTX and Plaquenil Influenza A/B neg RSV neg CTA Chest unremarkable Contact Isolation Tylenol PRN fever Acute Diarrhea-resolved CTAbd /Pelvis unremarkable STool studies O&P/Cx/WBC Thyroid Nodule TSH and f/u O/P 2 cm left thyroid lobe nodule is seen on CT DMI II HbA1C And ISS CAD S/P PCI /HTN Amlodipine 10 mg daily Lisinopril 20 mg daily ASA and Brillinta continue Atorvastatin 40 mg qhs Metoprolol succinate 25 mg q daily Rheumatoid Arthritis On Methotrexate 20 mg q weekly and Folic acid On hydroxyCQ 200 mg BID Per his RA will hold off MTX Supportive Care: DVT Px HSQ 5K BID Reg DM Diet Visit type - Emergency Visit Emergency Visit: Yes ED Registration Date: 07/14/19 Care time: The patient presented to the Emergency Department on the above date and was hospitalized for further evaluation of their emergent condition. - New Patient This patient is new to me today: No - Critical Care Critical Care patient: No - Discharge Referral Referred to [facility] No
[2019-07-15] MEDS: ACETAMINOPHEN 325 MG TABLET (FP) PO PRN (19:03)
[2019-07-15] MEDS: ATORVASTATIN CA 40 MG TABLET (FP) PO SCH (22:45)
[2019-07-15] MEDS ORDERED: ACETAMINOPHEN 325 MG TABLET (FP) PO ONE (23:00)
[2019-07-16] MEDS: ACETAMINOPHEN 325 MG TABLET (FP) PO PRN (05:31)
--- NOTE | 2019-07-16 05:56 | PN ---
Progress Note, Physician Chief Complaint: Pt A&ox3; c/o abdominal discomfort ("still sore"; hx constipation), sharp pains intermittently across chest and shoulders, and sore throat and runny nose. Denies dyspnea. History of Present Illness: Mr. Hidalgo is a 74 year old man with a past medical history of HTN, CAD s/p stent (at [facility], 10/2018), diabetes, s/p TKR, followed years later by partial knee replacement, here today for evaluation of headache, chest pain, and shortness of breath. The patient reports that he has had several days of headache, body aches, nasal congestion, chest pain, dry cough, diarrhea, abdominal pain, and intermittent shortness of breath. Pt is on metoprolol ER, amlodipine, and lisinopril at home for HTN: last doses ?yesterday. Patient denies headache, lightheadedness. Denies fever, chills. Denies nausea, vomiting. Denies travel, sick contacts. Allergies: clindamycin, donepezil, naproxen, penicillins - Current Medication List Current Medications: Active Medications Acetaminophen (Tylenol -) 650 mg PO Q6H PRN PRN Reason: Fever Or Pain Last Admin: 07/16/19 05:31 Dose: 650 mg Documented by: Amlodipine Besylate (Norvasc -) 10 mg PO DAILY [facility] Last Admin: 07/15/19 10:31 Dose: 10 mg Documented by: Atorvastatin Calcium (Lipitor -) 40 mg PO HS [facility] Last Admin: 07/15/19 22:45 Dose: 40 mg Documented by: Bisacodyl (Dulcolax Suppository -) 10 mg [place] DAILY PRN PRN Reason: CONSTIPATION Heparin Sodium (Porcine) (Heparin -) 5,000 unit SQ BID [facility] Last Admin: 07/15/19 22:45 Dose: 5,000 unit Documented by: Hydroxychloroquine Sulfate (Plaquenil -) 200 mg PO BID [facility] Last Admin: 07/15/19 22:45 Dose: 200 mg Documented by: Insulin Aspart (Novolog Vial Sliding Scale -) 0 vial SQ ACHS [facility]; Protocol Last Admin: 07/15/19 22:45 Dose: Not Given Documented by: Lisinopril (Prinivil) 20 mg PO DAILY [facility] Last Admin: 03/22/20 10:31 Dose: 20 mg Documented by: Metoclopramide HCl (Reglan -) 10 mg PO BID@1100,1630 [facility] Last Admin: 07/15/19 18:04 Dose: 10 mg Documented by: Metoprolol Succinate (Toprol Xl -) 25 mg PO DAILY [facility] Last Admin: 07/15/19 10:32 Dose: 25 mg Documented by: Pantoprazole Sodium (Protonix -) 40 mg PO DAILY [facility] Last Admin: 07/15/19 10:31 Dose: 40 mg Documented by: Ticagrelor (Brilinta) 60 mg PO BID [facility] Last Admin: 07/15/19 22:45 Dose: 60 mg Documented by: - Objective Vital Signs: Vital Signs Temperature 97.0 F L 07/16/19 02:00 Pulse Rate 60 07/16/19 02:00 Respiratory Rate 18 07/16/19 02:00 Blood Pressure 117/72 07/16/19 02:00 O2 Sat by Pulse Oximetry (%) 99 07/15/19 21:00 Constitutional: Yes: Anxious Eyes: Yes: WNL HENT: Yes: WNL Neck: Yes: WNL Cardiovascular: Yes: S1, S2 Respiratory: Yes: Regular Gastrointestinal: Yes: Soft, Tenderness ...Rectal Exam: Yes: Deferred Genitourinary: No: Anuria Breast(s): Yes: WNL Musculoskeletal: Yes: Joint Stiffness (s/p LKTR) Extremities: Yes: Cool Edema: No Peripheral Pulses WNL: Yes Integumentary: Yes: Venous Stasis Changes Neurological: Yes: Alert, Oriented Psychiatric: Yes: Alert, Oriented, Other (anxiety) Labs: CBC, BMP 07/15/19 07:05 07/15/19 07:05 Abnormal Lab Results 07/15/19 07/15/19 07:05 07:05 WBC 3.4 L RBC 3.95 L Hgb 10.8 L Hct 32.1 L Eosinophils % 5.8 H Chloride 108 H Anion Gap 3 L Random Glucose 144 H Calcium 8.4 L Alkaline Phosphatase 39 L Total Protein 5.3 L Albumin 3.0 L Assessment/Plan 1. CAD-->coronary stent 10/[address] [facility] (? no hx CT); chest pain (diffuse anterior, 8/10 in intensity, both heavy and sharp, lasting a few minutes, returning a few times a day for the past few weeks (pt also had similar pain several weeks after stent; says he had some tests and was told by his it security project manager it "wasn't the heart"). 2. HTN 3. DM 4. hyperlipidemia 5. Diarrhea 6. leukopenia; abdominal pain/diarrhea 7. thyroid nodule 8. Pt notes RA, and is on hydroxychloroquine Plan: r/o Covid 19 TNI < 0.02 x 3. EKG: NSR; no acute ST-T changes. Restarted antihypertensive medications (metoprolol ER lisinopril and amlodipine). ECHO for LVEF, chamber sizes, wall motion, and valve status. ASA 81 mg daily and Tacagrelor 60 mg bid. On atorvastatin 40 mg daily. Obtain prior cardiac records; may require further coronary artery evaluation. Incidental finding of thyroid nodule; TSH WNL.
[2019-07-16] MEDS: INSULIN SLIDING SCALE (NOVOLOG) 1 VIAL SQ SCH ×4 (06:43→21:30)
--- NOTE | 2019-07-16 09:12 | EKG ---
Test Reason : Blood Pressure : / mmHG Vent. Rate : 068 BPM Atrial Rate : 068 BPM P-R Int : 184 ms QRS Dur : 084 ms QT Int : 394 ms P-R-T Axes : 068 064 066 degrees QTc Int : 418 ms NORMAL SINUS RHYTHM NORMAL ECG NO PREVIOUS ECGS AVAILABLE Confirmed by Cj Encinas ([id number]) on 07/16/2019 9:11:56 AM Referred By: Confirmed By:Cj Encinas
--- NOTE | 2019-07-16 09:23 | PN ---
Progress Note, Physician History of Present Illness: Mr. Hidalgo is a 74 year old man with a past medical history of HTN, CAD s/p stent (at [facility], 10/2018), diabetes, s/p TKR, followed years later by partial knee replacement, here today for evaluation of headache, chest pain, and shortness of breath. The patient reports that he has had several days of headache, body aches, nasal congestion, chest pain, dry cough, diarrhea, abdomi nal pain, and intermittent shortness of breath. Pt is on metoprolol ER, amlodipine, and lisinopril at home for HTN: last doses ?yesterday. - Current Medication List Current Medications: Active Medications Acetaminophen (Tylenol -) 650 mg PO Q6H PRN PRN Reason: Fever Or Pain Last Admin: 07/16/19 05:31 Dose: 650 mg Documented by: Amlodipine Besylate (Norvasc -) 10 mg PO DAILY [facility] Last Admin: 07/15/19 10:31 Dose: 10 mg Documented by: Atorvastatin Calcium (Lipitor -) 40 mg PO HS [facility] Last Admin: 07/15/19 22:45 Dose: 40 mg Documented by: Bisacodyl (Dulcolax Suppository -) 10 mg [place] DAILY PRN PRN Reason: CONSTIPATION Heparin Sodium (Porcine) (Heparin -) 5,000 unit SQ BID [facility] Last Admin: 07/15/19 22:45 Dose: 5,000 unit Documented by: Hydroxychloroquine Sulfate (Plaquenil -) 200 mg PO BID [facility] Last Admin: 07/15/19 22:45 Dose: 200 mg Documented by: Insulin Aspart (Novolog Vial Sliding Scale -) 0 vial SQ ACHS [facility]; Protocol Last Admin: 07/16/19 06:43 Dose: 2 units Documented by: Lisinopril (Prinivil) 20 mg PO DAILY [facility] Last Admin: 07/15/19 10:31 Dose: 20 mg Documented by: Metoclopramide HCl (Reglan -) 10 mg PO BID@1100,1630 [facility] Last Admin: 07/15/19 18:04 Dose: 10 mg Documented by: Metoprolol Succinate (Toprol Xl -) 25 mg PO DAILY [facility] Last Admin: 07/15/19 10:32 Dose: 25 mg Documented by: Pantoprazole Sodium (Protonix -) 40 mg PO DAILY [facility] Last Admin: 07/15/19 10:31 Dose: 40 mg Documented by: Ticagrelor (Brilinta) 60 mg PO BID [facility] Last Admin: 07/15/19 22:45 Dose: 60 mg Documented by: - Objective Vital Signs: Vital Signs Temperature 97.7 F 07/16/19 06:00 Pulse Rate 53 L 07/16/19 06:00 Respiratory Rate 18 07/16/19 06:00 Blood Pressure 114/69 07/16/19 06:00 O2 Sat by Pulse Oximetry (%) 99 07/15/19 21:00 Eyes: Yes: WNL, Conjunctiva Clear, EOM Intact HENT: Yes: WNL, Atraumatic, Normocephalic Neck: Yes: WNL, Supple, Trachea Midline Cardiovascular: Yes: WNL, Regular Rate and Rhythm Respiratory: Yes: WNL, Regular, CTA Bilaterally Gastrointestinal: Yes: WNL, Normal Bowel Sounds Genitourinary: Yes: WNL Musculoskeletal: Yes: WNL Extremities: Yes: WNL Edema: No Integumentary: Yes: WNL Neurological: Yes: WNL, Alert, Oriented ...Motor Strength: WNL Psychiatric: Yes: WNL Labs: CBC, BMP 07/15/19 07:05 07/15/19 07:05 Problem List - Problems (1) Diarrhea Code(s): R19.7 - DIARRHEA, UNSPECIFIED Assessment/Plan 1. CAD-->coronary stent 10/2018 at [facility] (? no hx [place]); chest pain (diffuse anterior, 8/10 in intensity, both heavy and sharp, lasting a few minutes, returning a few times a day for the past few weeks (pt also had similar pain several weeks after stent; says he had some tests and was told by his special crimes investigator it "wasn't the heart"). 2. HTN 3. DM 4. hyperlipidemia 5. Diarrhea 6. leukopenia; abdominal pain/diarrhea 7. thyroid nodule 8. Pt notes RA, and is on hydroxychloroquine Plan: r/o Covid 19 TNI < 0.02 x 3. EKG: NSR; no acute ST-T changes. Restarted antihypertensive medications (metoprolol ER lisinopril and amlodipine). ECHO for LVEF, chamber sizes, wall motion, and valve status. ASA 81 mg daily and Tacagrelor 60 mg bid. On atorvastatin 40 mg daily. Obtain prior cardiac records; may require further coronary artery evaluation.
[2019-07-16] MEDS ORDERED: PT OWN MED DRAWER 7, Y5N ONE ×2 (10:38→21:06)
[2019-07-16] MEDS: HEPARIN NA (PORCINE) 5,000 UNITS/ML 1ML VIAL SQ SCH ×2 (10:40→21:30)
[2019-07-16] MEDS: metoPROLOL SUCCINATE 25 MG TAB.SR.24H (FP) PO SCH (10:40)
[2019-07-16] MEDS: LISINOPRIL 20 MG TABLET (FP) PO SCH (10:40)
[2019-07-16] MEDS: HYDROXYCHLOROQUINE SO4 200 MG TABLET (FP) PO SCH ×2 (10:40→21:30)
[2019-07-16] MEDS: TICAGRELOR 60 MG TABLET PO SCH ×2 (10:40→21:30)
[2019-07-16] MEDS: PANTOPRAZOLE 40 MG TABLET PO SCH (10:40)
[2019-07-16] MEDS: amLODIPine BESYLATE 10 MG TABLET (FP) PO SCH (10:40)
[2019-07-16] MEDS: METOCLOPRAMIDE HCL 10 MG TABLET (FP) PO SCH ×2 (10:40→16:45)
--- NOTE | 2019-07-16 11:55 | EKG ---
Test Reason : Blood Pressure : / mmHG Vent. Rate : 067 BPM Atrial Rate : 067 BPM P-R Int : 180 ms QRS Dur : 086 ms QT Int : 398 ms P-R-T Axes : 066 048 058 degrees QTc Int : 420 ms NORMAL SINUS RHYTHM NORMAL ECG WHEN COMPARED WITH ECG OF 13-JUL-2019 17:41, NO SIGNIFICANT CHANGE WAS FOUND Confirmed by Cj Encinas ([id number]) on 07/16/2019 11:55:22 AM Referred By: Confirmed By:Cj Encinas
--- NOTE | 2019-07-16 12:36 | PN ---
Progress Note (short form) - Note Progress Note: still with intermittent chest discomfort finally moved his bowels takes plaquenil for RA! Vital Signs Period Temp Pulse Resp BP Sys/[place] Pulse Ox Last 24 Hr 97.0 F-98.4 F 53-72 18- 98-132/55-76 99 cor-rrr lungs clear abd soft,nt ext no edema CBC, BMP 07/15/19 07:05 07/15/19 07:05 Microbiology 07/14/19 18:00 Urine For Antigen Detection Legionella Antigen - Preliminary 07/14/19 18:00 Urine For Antigen Detection Streptococcus pneumoniae Antigen (M - Final a/p agree with r/o covid 19 agree with stool w/u (he denies recent antibiotics use) chest pain eval history of stent in october continue to observe he has no signs of pneumonia on ct scan and is not hypoxic at this time if chest pain w/u is completed, he could go home on self isolation with f/u of covid pcr results- from an ID standpoint he is stable
[2019-07-16] MEDS ORDERED: INSULIN SLIDING SCALE (NOVOLOG) 1 VIAL SQ ONE (21:14)
[2019-07-16] MEDS: ATORVASTATIN CA 40 MG TABLET (FP) PO SCH (21:30)
--- NOTE | 2019-07-16 22:04 | PN ---
Progress Note, Physician History of Present Illness: Pt states that he had chest pain last night - Current Medication List Current Medications: Active Medications Acetaminophen (Tylenol -) 650 mg PO Q6H PRN PRN Reason: Fever Or Pain Last Admin: 07/16/19 05:31 Dose: 650 mg Documented by: Amlodipine Besylate (Norvasc -) 10 mg PO DAILY [facility] Last Admin: 07/16/19 10:40 Dose: 10 mg Documented by: Atorvastatin Calcium (Lipitor -) 40 mg PO HS [facility] Last Admin: 07/16/19 21:30 Dose: 40 mg Documented by: Bisacodyl (Dulcolax Suppository -) 10 mg [place] DAILY PRN PRN Reason: CONSTIPATION Heparin Sodium (Porcine) (Heparin -) 5,000 unit SQ BID [facility] Last Admin: 07/16/19 21:30 Dose: 5,000 unit Documented by: Hydroxychloroquine Sulfate (Plaquenil -) 200 mg PO BID [facility] Last Admin: 07/16/19 21:30 Dose: 200 mg Documented by: Insulin Aspart (Novolog Vial Sliding Scale -) 0 vial SQ [facility]; Protocol Last Admin: 07/16/19 21:30 Dose: 2 units Documented by: Lisinopril (Prinivil) 20 mg PO DAILY [facility] Last Admin: 07/16/19 10:40 Dose: 20 mg Documented by: Metoclopramide HCl (Reglan -) 10 mg PO BID@1100,1630 [facility] Last Admin: 07/16/19 16:45 Dose: 10 mg Documented by: Metoprolol Succinate (Toprol Xl -) 25 mg PO DAILY [facility] Last Admin: 07/16/19 10:40 Dose: 25 mg Documented by: Pantoprazole Sodium (Protonix -) 40 mg PO DAILY [facility] Last Admin: 07/16/19 10:40 Dose: 40 mg Documented by: Ticagrelor (Brilinta) 60 mg PO BID [facility] Last Admin: 07/16/19 21:30 Dose: 60 mg Documented by: - Objective Vital Signs: Vital Signs Temperature 99.0 F 07/16/19 18:00 Pulse Rate 71 07/16/19 18:00 Respiratory Rate 18 07/16/19 18:00 Blood Pressure 108/55 L 07/16/19 18:00 O2 Sat by Pulse Oximetry (%) 99 07/16/19 10:00 Neck: Yes: WNL, Supple Cardiovascular: Yes: WNL, Regular Rate and Rhythm Respiratory: Yes: WNL, Regular, CTA Bilaterally Gastrointestinal: Yes: WNL, Normal Bowel Sounds, Soft Labs: CBC, BMP 07/15/19 07:05 07/15/19 07:05 Problem List - Problems (1) Chest pain Assessment/Plan: Further management as per cardio Pt w/ h/o CAD and stents CTA chest was unremarkable Pt also has covid 19 titer pending Code(s): R07.9 - CHEST PAIN, UNSPECIFIED (2) CAD (coronary artery disease) Assessment/Plan: Cont brilinta Code(s): I25.10 - ATHSCL HEART DISEASE OF [place] CORONARY ARTERY W/O ANG PCTRS (3) HTN (hypertension) Assessment/Plan: BP stable Cont lisinopril/metoprolol/amlodipine Code(s): I10 - ESSENTIAL (PRIMARY) HYPERTENSION (4) HLD (hyperlipidemia) Assessment/Plan: Cont lipitor Code(s): E78.5 - HYPERLIPIDEMIA, UNSPECIFIED (5) Diabetes Assessment/Plan: Cont sliding scale w/ coverage Code(s): E11.9 - TYPE 2 DIABETES MELLITUS WITHOUT COMPLICATIONS (6) Diarrhea Assessment/Plan: Ct scan abd unremarkable Cdiff negative Resolved Code(s): R19.7 - DIARRHEA, UNSPECIFIED
[2019-07-17] MEDS ORDERED: INSULIN SLIDING SCALE (NOVOLOG) 1 VIAL SQ ONE (06:14)
[2019-07-17] MEDS: INSULIN SLIDING SCALE (NOVOLOG) 1 VIAL SQ SCH ×4 (06:31→21:45)
[2019-07-17 06:56] LABS: BASO % 0.7 % (0-2.0); EOS % 4.9 % (0-4.5); HEMATOCRIT 30.8 % (35.4-49); HEMOGLOBIN 10.3 GM/dL (11.7-16.9); LYMPH % 24.1 % (8-40); MCH 27.1 pg (25.7-33.7); MCHC 33.4 g/dl (32.0-35.9); MEAN CELL VOLUME 81.4 fl (80-96); MEAN PLT VOLUME 8.4 fl (7.5-11.1); MONO % 8.7 % (3.8-10.2); NEUT % 61.6 % (42.8-82.8); PLATELET COUNT 139 K/MM3 (134-434); RBC 3.79 M/mm3 (4.00-5.60); RDW 15.3 % (11.9-15.9); WHITE BLOOD COUNT 3.6 K/mm3 (4.0-10.0)
[2019-07-17 07:20] LABS: ALBUMIN 2.9 g/dl (3.4-5.0); BILIRUBIN,TOTAL 0.1 mg/dL (0.2-1); BLOOD UREA NITROGEN 14.3 mg/dL (7-18); CALCIUM 8.3 mg/dL (8.5-10.1); CREATININE 0.9 mg/dL (0.55-1.3); TOT PROT 5.4 g/dl (6.4-8.2)
[2019-07-17] MEDS ORDERED: PT OWN MED DRAWER 7, Y5N ONE ×3 (07:36→20:40)
[2019-07-17] MEDS: TICAGRELOR 60 MG TABLET PO SCH ×2 (09:01→21:26)
[2019-07-17] MEDS: amLODIPine BESYLATE 10 MG TABLET (FP) PO SCH (09:02)
[2019-07-17] MEDS: HEPARIN NA (PORCINE) 5,000 UNITS/ML 1ML VIAL SQ SCH ×2 (09:02→21:25)
[2019-07-17] MEDS: LISINOPRIL 20 MG TABLET (FP) PO SCH (09:03)
[2019-07-17] MEDS: HYDROXYCHLOROQUINE SO4 200 MG TABLET (FP) PO SCH ×2 (09:03→21:28)
[2019-07-17] MEDS: metoPROLOL SUCCINATE 25 MG TAB.SR.24H (FP) PO SCH (09:03)
[2019-07-17] MEDS: PANTOPRAZOLE 40 MG TABLET PO SCH (09:03)
[2019-07-17] MEDS: METOCLOPRAMIDE HCL 10 MG TABLET (FP) PO SCH ×2 (11:56→16:35)
--- NOTE | 2019-07-17 16:29 | PN ---
Progress Note, Physician Chief Complaint: Pt A&ox3; no chest pain or dyspnea; + had bowel movement for the first time during hospitalization yesterday and feels better, but still c/o chronic abdominal discomfort. Anxious; want sot be sure his heart is "OK". History of Present Illness: Mr. Hidalgo is a 74 year old man with a past medical history of HTN, CAD s/p stent (at [facility], 10/2018), diabetes, s/p TKR, followed years later by partial knee replacement, ?anemia, now here today for evaluation of headache, chest pain, and shortness of breath. The patient reports that he has had several days of headache, body aches, nasal congestion, chest pain, dry cough, diarrhea, abdominal pain, and intermittent shortness of breath. Pt is on metoprolol ER, amlodipine, and lisinopril at home for HTN: last doses ?yesterday. Patient denies headache, lightheadedness. Denies fever, chills. Denies nausea, vomiting. Denies travel, sick contacts. Allergies: clindamycin, donepezil, naproxen, penicillins - Current Medication List Current Medications: Active Medications Acetaminophen (Tylenol -) 650 mg PO Q6H PRN PRN Reason: Fever Or Pain Last Admin: 07/16/19 05:31 Dose: 650 mg Documented by: Amlodipine Besylate (Norvasc -) 10 mg PO DAILY [facility] Last Admin: 07/17/19 09:02 Dose: 10 mg Documented by: Atorvastatin Calcium (Lipitor -) 40 mg PO HS [facility] Last Admin: 07/16/19 21:30 Dose: 40 mg Documented by: Bisacodyl (Dulcolax Suppository -) 10 mg [place] DAILY PRN PRN Reason: CONSTIPATION Heparin Sodium (Porcine) (Heparin -) 5,000 unit SQ BID [facility] Last Admin: 07/17/19 09:02 Dose: 5,000 unit Documented by: Hydroxychloroquine Sulfate (Plaquenil -) 200 mg PO BID [facility] Last Admin: 07/17/19 09:03 Dose: 200 mg Documented by: Insulin Aspart (Novolog Vial Sliding Scale -) 0 vial SQ ACHS [facility]; Protocol Last Admin: 07/17/19 11:59 Dose: Not Given Documented by: Lisinopril (Prinivil) 20 mg PO DAILY [facility] Last Admin: 07/17/19 09:03 Dose: 20 mg Documented by: Metoclopramide HCl (Reglan -) 10 mg PO BID@1100,1630 [facility] Last Admin: 07/17/19 11:56 Dose: 10 mg Documented by: Metoprolol Succinate (Toprol Xl -) 25 mg PO DAILY [facility] Last Admin: 07/17/19 09:03 Dose: 25 mg Documented by: Pantoprazole Sodium (Protonix -) 40 mg PO DAILY [facility] Last Admin: 07/17/19 09:03 Dose: 40 mg Documented by: Ticagrelor (Brilinta) 60 mg PO BID [facility] Last Admin: 07/17/19 09:01 Dose: 60 mg Documented by: - Objective Vital Signs: Vital Signs Temperature 97.7 F 07/17/19 14:02 Pulse Rate 63 07/17/19 14:02 Respiratory Rate 15 07/17/19 14:02 Blood Pressure 123/66 07/17/19 14:02 O2 Sat by Pulse Oximetry (%) 97 07/17/19 10:00 Constitutional: Yes: Anxious Eyes: Yes: WNL HENT: Yes: WNL Neck: Yes: WNL Cardiovascular: Yes: Regular Rate and Rhythm Respiratory: Yes: WNL Gastrointestinal: Yes: WNL ...Rectal Exam: Yes: Deferred Genitourinary: No: Anuria Breast(s): Yes: WNL Musculoskeletal: Yes: WNL Extremities: Yes: WNL Edema: No Peripheral Pulses WNL: Yes Integumentary: Yes: Venous Stasis Changes Neurological: Yes: WNL ...Motor Strength: WNL Psychiatric: Yes: WNL Labs: CBC, BMP 07/17/19 05:15 07/17/19 05:15 Abnormal Lab Results 07/17/19 07/17/19 05:15 05:15 WBC 3.6 L RBC 3.79 L Hgb 10.3 L Hct 30.8 L Eosinophils % 4.9 H Chloride 108 H Anion Gap 5 L Random Glucose 234 H Calcium 8.3 L Total Bilirubin 0.1 L Alkaline Phosphatase 39 L Total Protein 5.4 L Albumin 2.9 L Abnormal Lab Results 07/17/19 07/17/19 05:15 05:15 WBC 3.6 L RBC 3.79 L Hgb 10.3 L Hct 30.8 L Eosinophils % 4.9 H Chloride 108 H Anion Gap 5 L Random Glucose 234 H Calcium 8.3 L Total Bilirubin 0.1 L Alkaline Phosphatase 39 L Total Protein 5.4 L Albumin 2.9 L Problem List - Problems (1) CAD (coronary artery disease) Code(s): I25.10 - ATHSCL HEART DISEASE OF [place] CORONARY ARTERY W/O ANG PCTRS (2) Chest pain Code(s): R07.9 - CHEST PAIN, UNSPECIFIED (3) Diabetes Code(s): E11.9 - TYPE 2 DIABETES MELLITUS WITHOUT COMPLICATIONS (4) HLD (hyperlipidemia) Code(s): E78.5 - HYPERLIPIDEMIA, UNSPECIFIED (5) HTN (hypertension) Code(s): I10 - ESSENTIAL (PRIMARY) HYPERTENSION Assessment/Plan 1. CAD-->coronary stent 10/2018 at [facility] (? no hx [place]); chest pain (diffuse anterior, 8/10 in intensity, both heavy and sharp, lasting a few minutes, returning a few times a day for the past few weeks (pt also had similar pain several weeks after stent; says he had some tests and was told by his combination machine tool setter it "wasn't the heart"). 2. HTN 3. DM 4. hyperlipidemia 5. Diarrhea 6. leukopenia; abdominal pain/diarrhea 7. thyroid nodule 8. Pt notes RA, and is on hydroxychloroquine 9. anemia Plan: r/o Covid 19 TNI < 0.02 x 3. EKG: NSR; no acute ST-T changes. Restarted antihypertensive medications (metoprolol ER lisinopril and amlodipine). ECHO for LVEF, chamber sizes, wall motion, and valve status. ASA 81 mg daily and Tacagrelor 60 mg bid. On atorvastatin 40 mg daily. stool quaiac pending Obtain prior cardiac records; may require further coronary artery evaluation. Incidental finding of thyroid nodule; TSH WNL.
[2019-07-17] MEDS: ATORVASTATIN CA 40 MG TABLET (FP) PO SCH (21:26)
--- NOTE | 2019-07-17 23:05 | PN ---
Progress Note, Physician History of Present Illness: No new complaints - Current Medication List Current Medications: Active Medications Acetaminophen (Tylenol -) 650 mg PO Q6H PRN PRN Reason: Fever Or Pain Last Admin: 07/16/19 05:31 Dose: 650 mg Documented by: Amlodipine Besylate (Norvasc -) 10 mg PO DAILY [facility] Last Admin: 07/17/19 09:02 Dose: 10 mg Documented by: Atorvastatin Calcium (Lipitor -) 40 mg PO HS [facility] Last Admin: 07/17/19 21:26 Dose: 40 mg Documented by: Bisacodyl (Dulcolax Suppository -) 10 mg [place] DAILY PRN PRN Reason: CONSTIPATION Heparin Sodium (Porcine) (Heparin -) 5,000 unit SQ BID [facility] Last Admin: 07/17/19 21:25 Dose: 5,000 unit Documented by: Hydroxychloroquine Sulfate (Plaquenil -) 200 mg PO BID [facility] Last Admin: 07/17/19 21:28 Dose: 200 mg Documented by: Insulin Aspart (Novolog Vial Sliding Scale -) 0 vial SQ [facility]; Protocol Last Admin: 07/17/19 21:45 Dose: 4 units Documented by: Lisinopril (Prinivil) 20 mg PO DAILY [facility] Last Admin: 07/17/19 09:03 Dose: 20 mg Documented by: Metoclopramide HCl (Reglan -) 10 mg PO BID@1100,1630 [facility] Last Admin: 07/17/19 16:35 Dose: 10 mg Documented by: Metoprolol Succinate (Toprol Xl -) 25 mg PO DAILY [facility] Last Admin: 07/17/19 09:03 Dose: 25 mg Documented by: Pantoprazole Sodium (Protonix -) 40 mg PO DAILY [facility] Last Admin: 07/17/19 09:03 Dose: 40 mg Documented by: Ticagrelor (Brilinta) 60 mg PO BID [facility] Last Admin: 07/17/19 21:26 Dose: 60 mg Documented by: - Objective Vital Signs: Vital Signs Temperature 98.0 F 07/17/19 18:00 Pulse Rate 66 07/17/19 18:00 Respiratory Rate 17 07/17/19 18:00 Blood Pressure 104/50 L 07/17/19 18:00 O2 Sat by Pulse Oximetry (%) 97 07/17/19 10:00 Neck: Yes: WNL, Supple Cardiovascular: Yes: WNL, Regular Rate and Rhythm Respiratory: Yes: WNL, Regular, CTA Bilaterally Gastrointestinal: Yes: WNL, Normal Bowel Sounds, Soft Labs: CBC, BMP 07/17/19 05:15 07/17/19 05:15 Problem List - Problems (1) Chest pain Assessment/Plan: Further management as per cardio Pt w/ h/o CAD and stents CTA chest was unremarkable Pt also has covid 19 titer pending Code(s): R07.9 - CHEST PAIN, UNSPECIFIED (2) CAD (coronary artery disease) Assessment/Plan: Cont brilinta Code(s): I25.10 - ATHSCL HEART DISEASE OF [place] CORONARY ARTERY W/O ANG PCTRS (3) HTN (hypertension) Assessment/Plan: BP stable Cont lisinopril/metoprolol/amlodipine Code(s): I10 - ESSENTIAL (PRIMARY) HYPERTENSION (4) HLD (hyperlipidemia) Assessment/Plan: Cont lipitor Code(s): E78.5 - HYPERLIPIDEMIA, UNSPECIFIED (5) Diabetes Assessment/Plan: Cont sliding scale w/ coverage Code(s): E11.9 - TYPE 2 DIABETES MELLITUS WITHOUT COMPLICATIONS (6) Diarrhea Assessment/Plan: Ct scan abd unremarkable Cdiff negative Resolved Code(s): R19.7 - DIARRHEA, UNSPECIFIED
[2019-07-18] MEDS: INSULIN SLIDING SCALE (NOVOLOG) 1 VIAL SQ SCH ×4 (06:15→21:44)
[2019-07-18] MEDS ORDERED: PT OWN MED DRAWER 7, Y5N ONE ×3 (06:59→21:10)
[2019-07-18] MEDS: HEPARIN NA (PORCINE) 5,000 UNITS/ML 1ML VIAL SQ SCH ×2 (09:51→21:43)
[2019-07-18] MEDS: amLODIPine BESYLATE 10 MG TABLET (FP) PO SCH (09:51)
[2019-07-18] MEDS: PANTOPRAZOLE 40 MG TABLET PO SCH (09:51)
[2019-07-18] MEDS: LISINOPRIL 20 MG TABLET (FP) PO SCH (09:51)
[2019-07-18] MEDS: metoPROLOL SUCCINATE 25 MG TAB.SR.24H (FP) PO SCH (09:51)
[2019-07-18] MEDS: TICAGRELOR 60 MG TABLET PO SCH ×2 (09:51→21:42)
[2019-07-18] MEDS: HYDROXYCHLOROQUINE SO4 200 MG TABLET (FP) PO SCH ×2 (09:52→21:44)
--- NOTE | 2019-07-18 11:56 | PN ---
Progress Note, Physician History of Present Illness: Mr. Hidalgo is a 74 year old man with a past medical history of HTN, CAD s/p stent (at [facility], 10/2018), diabetes, s/p TKR, followed years later by partial knee replacement, here today for evaluation of headache, chest pain, and shortness of breath. The patient reports that he has had several days of headache, body aches, nasal congestion, chest pain, dry cough, diarrhea, abdomi nal pain, and intermittent shortness of breath. Pt is on metoprolol ER, amlodipine, and lisinopril at home for HTN: last doses ?yesterday. - Current Medication List Current Medications: Active Medications Acetaminophen (Tylenol -) 650 mg PO Q6H PRN PRN Reason: Fever Or Pain Last Admin: 07/16/19 05:31 Dose: 650 mg Documented by: Amlodipine Besylate (Norvasc -) 10 mg PO DAILY [facility] Last Admin: 07/18/19 09:51 Dose: 10 mg Documented by: Atorvastatin Calcium (Lipitor -) 40 mg PO HS [facility] Last Admin: 07/17/19 21:26 Dose: 40 mg Documented by: Bisacodyl (Dulcolax Suppository -) 10 mg [place] DAILY PRN PRN Reason: CONSTIPATION Last Admin: 07/18/19 01:07 Dose: 10 mg Documented by: Heparin Sodium (Porcine) (Heparin -) 5,000 unit SQ BID [facility] Last Admin: 07/18/19 09:51 Dose: 5,000 unit Documented by: Hydroxychloroquine Sulfate (Plaquenil -) 200 mg PO BID [facility] Last Admin: 07/18/19 09:52 Dose: 200 mg Documented by: Insulin Aspart (Novolog Vial Sliding Scale -) 0 vial SQ [facility]; Protocol Last Admin: 07/18/19 06:15 Dose: 4 units Documented by: Lisinopril (Prinivil) 20 mg PO DAILY [facility] Last Admin: 07/18/19 09:51 Dose: 20 mg Documented by: Metoclopramide HCl (Reglan -) 10 mg PO BID@1100,1630 [facility] Last Admin: 07/17/19 16:35 Dose: 10 mg Documented by: Metoprolol Succinate (Toprol Xl -) 25 mg PO DAILY [facility] Last Admin: 07/18/19 09:51 Dose: 25 mg Documented by: Pantoprazole Sodium (Protonix -) 40 mg PO DAILY [facility] Last Admin: 07/18/19 09:51 Dose: 40 mg Documented by: Ticagrelor (Brilinta) 60 mg PO BID [facility] Last Admin: 07/18/19 09:51 Dose: 60 mg Documented by: - Objective Vital Signs: Vital Signs Temperature 97.8 F 07/18/19 09:50 Pulse Rate 78 07/18/19 09:50 Respiratory Rate 18 07/18/19 09:50 Blood Pressure 127/62 07/18/19 09:50 O2 Sat by Pulse Oximetry (%) 97 07/17/19 21:00 Eyes: Yes: WNL, Conjunctiva Clear, EOM Intact HENT: Yes: WNL, Atraumatic, Normocephalic Neck: Yes: WNL, Supple, Trachea Midline Cardiovascular: Yes: WNL, Regular Rate and Rhythm Respiratory: Yes: WNL, Regular, CTA Bilaterally Gastrointestinal: Yes: WNL, Normal Bowel Sounds Genitourinary: Yes: WNL Musculoskeletal: Yes: WNL Extremities: Yes: WNL Edema: No Integumentary: Yes: WNL Neurological: Yes: WNL, Alert, Oriented ...Motor Strength: WNL Psychiatric: Yes: WNL Labs: CBC, BMP 07/17/19 05:15 07/17/19 05:15 Problem List - Problems (1) Diarrhea Code(s): R19.7 - DIARRHEA, UNSPECIFIED Assessment/Plan - Problems (1) CAD (coronary artery disease) Code(s): I25.10 - ATHSCL HEART DISEASE OF [place] CORONARY ARTERY W/O ANG PCTRS (2) Chest pain Code(s): R07.9 - CHEST PAIN, UNSPECIFIED (3) Diabetes Code(s): E11.9 - TYPE 2 DIABETES MELLITUS WITHOUT COMPLICATIONS (4) HLD (hyperlipidemia) Code(s): E78.5 - HYPERLIPIDEMIA, UNSPECIFIED (5) HTN (hypertension) Code(s): I10 - ESSENTIAL (PRIMARY) HYPERTENSION Assessment/Plan 1. CAD-->coronary stent 10/2018 at [facility] (? no hx [place]); chest pain (diffuse anterior, 8/10 in intensity, both heavy and sharp, lasting a few minutes, returning a few times a day for the past few weeks (pt also had similar pain several weeks after stent; says he had some tests and was told by his bid clerk it "wasn't the heart"). 2. HTN 3. DM 4. hyperlipidemia 5. Diarrhea 6. leukopenia; abdominal pain/diarrhea 7. thyroid nodule 8. Pt notes RA, and is on hydroxychloroquine 9. anemia Plan: r/o Covid 19 TNI < 0.02 x 3. EKG: NSR; no acute ST-T changes. Restarted antihypertensive medications (metoprolol ER lisinopril and amlod ipine). ECHO for LVEF, chamber sizes, wall motion, and valve status. ASA 81 mg daily and Tacagrelor 60 mg bid. On atorvastatin 40 mg daily. stool quaiac pending Obtain prior cardiac records; may require further coronary artery evaluation. Incidental finding of thyroid nodule; TSH WNL.
[2019-07-18] MEDS: METOCLOPRAMIDE HCL 10 MG TABLET (FP) PO SCH ×2 (12:18→17:37)
[2019-07-18] MEDS ORDERED: INSULIN SLIDING SCALE (NOVOLOG) 1 VIAL SQ ONE (21:11)
[2019-07-18] MEDS: ATORVASTATIN CA 40 MG TABLET (FP) PO SCH (21:44)
--- NOTE | 2019-07-18 23:37 | PN ---
Progress Note, Physician History of Present Illness: Pt complains of dry nonproductive during the night - Current Medication List Current Medications: Active Medications Acetaminophen (Tylenol -) 650 mg PO Q6H PRN PRN Reason: Fever Or Pain Last Admin: 07/16/19 05:31 Dose: 650 mg Documented by: Amlodipine Besylate (Norvasc -) 10 mg PO DAILY [facility] Last Admin: 07/18/19 09:51 Dose: 10 mg Documented by: Atorvastatin Calcium (Lipitor -) 40 mg PO HS [facility] Last Admin: 07/18/19 21:44 Dose: 40 mg Documented by: Bisacodyl (Dulcolax Suppository -) 10 mg ND DAILY PRN PRN Reason: CONSTIPATION Last Admin: 07/18/19 01:07 Dose: 10 mg Documented by: Heparin Sodium (Porcine) (Heparin -) 5,000 unit SQ BID [facility] Last Admin: 07/18/19 21:43 Dose: 5,000 unit Documented by: Hydroxychloroquine Sulfate (Plaquenil -) 200 mg PO BID [facility] Last Admin: 07/18/19 21:44 Dose: 200 mg Documented by: Insulin Aspart (Novolog Vial Sliding Scale -) 0 vial SQ [facility]; Protocol Last Admin: 07/18/19 21:44 Dose: 4 units Documented by: Lisinopril (Prinivil) 20 mg PO DAILY [facility] Last Admin: 07/18/19 09:51 Dose: 20 mg Documented by: Metoclopramide HCl (Reglan -) 10 mg PO BID@1100,1630 [facility] Last Admin: 07/18/19 17:37 Dose: 10 mg Documented by: Metoprolol Succinate (Toprol Xl -) 25 mg PO DAILY [facility] Last Admin: 07/18/19 09:51 Dose: 25 mg Documented by: Pantoprazole Sodium (Protonix -) 40 mg PO DAILY [facility] Last Admin: 07/18/19 09:51 Dose: 40 mg Documented by: Ticagrelor (Brilinta) 60 mg PO BID [facility] Last Admin: 07/18/19 21:42 Dose: 60 mg Documented by: - Objective Vital Signs: Vital Signs Temperature 98.5 F 07/18/19 21:35 Pulse Rate 73 07/18/19 21:35 Respiratory Rate 15 07/18/19 21:35 Blood Pressure 128/68 07/18/19 21:35 O2 Sat by Pulse Oximetry (%) 97 07/18/19 09:00 Neck: Yes: WNL, Supple Cardiovascular: Yes: WNL, Regular Rate and Rhythm Respiratory: Yes: WNL, Regular, CTA Bilaterally Gastrointestinal: Yes: WNL, Normal Bowel Sounds, Soft Labs: CBC, BMP 07/17/19 05:15 07/17/19 05:15 Problem List - Problems (1) Chest pain Assessment/Plan: Further management as per cardio Pt w/ h/o CAD and stents CTA chest was unremarkable Pt also has covid 19 titer pending Code(s): R07.9 - CHEST PAIN, UNSPECIFIED (2) CAD (coronary artery disease) Assessment/Plan: Cont brilinta Code(s): I25.10 - ATHSCL HEART DISEASE OF [place] CORONARY ARTERY W/O ANG PCTRS (3) HTN (hypertension) Assessment/Plan: BP stable Cont lisinopril/metoprolol/amlodipine Code(s): I10 - ESSENTIAL (PRIMARY) HYPERTENSION (4) HLD (hyperlipidemia) Assessment/Plan: Cont lipitor Code(s): E78.5 - HYPERLIPIDEMIA, UNSPECIFIED (5) Diabetes Assessment/Plan: Cont sliding scale w/ coverage Code(s): E11.9 - TYPE 2 DIABETES MELLITUS WITHOUT COMPLICATIONS (6) Diarrhea Assessment/Plan: Ct scan abd unremarkable Cdiff negative Resolved Code(s): R19.7 - DIARRHEA, UNSPECIFIED
[2019-07-19] MEDS: INSULIN SLIDING SCALE (NOVOLOG) 1 VIAL SQ SCH ×4 (06:21→22:30)
[2019-07-19 07:27] LABS: HEMATOCRIT 31.8 % (35.4-49); HEMOGLOBIN 10.5 GM/dL (11.7-16.9); MEAN CELL VOLUME 81.6 fl (80-96); MEAN PLT VOLUME 8.2 fl (7.5-11.1); PLATELET COUNT 129 K/MM3 (134-434); WHITE BLOOD COUNT 3.1 K/mm3 (4.0-10.0)
[2019-07-19 07:59] LABS: ALK PHOS 42 U/L (45-117); ANION GAP 5 MMOL/L (8-16); BILIRUBIN,TOTAL 0.5 mg/dL (0.2-1); CALCIUM 8.3 mg/dL (8.5-10.1); CHLORIDE 108 mmol/L (98-107); CO2 30 mmol/L (21-32); CREATININE 0.9 mg/dL (0.55-1.3); GLUCOSE,RANDOM 194 mg/dL (74-106); POTASSIUM 4.1 mmol/L (3.5-5.1); SGOT/AST 28 U/L (15-37); SGPT/ALT 53 U/L (13-61); SODIUM 142 mmol/L (136-145); TOT PROT 5.6 g/dl (6.4-8.2)
[2019-07-19] MEDS: TICAGRELOR 60 MG TABLET PO SCH ×2 (10:46→22:30)
[2019-07-19] MEDS: PANTOPRAZOLE 40 MG TABLET PO SCH (10:47)
[2019-07-19] MEDS: LISINOPRIL 20 MG TABLET (FP) PO SCH (10:47)
[2019-07-19] MEDS: HEPARIN NA (PORCINE) 5,000 UNITS/ML 1ML VIAL SQ SCH ×2 (10:47→22:30)
[2019-07-19] MEDS: metoPROLOL SUCCINATE 25 MG TAB.SR.24H (FP) PO SCH (10:47)
[2019-07-19] MEDS: amLODIPine BESYLATE 10 MG TABLET (FP) PO SCH (10:47)
[2019-07-19] MEDS: HYDROXYCHLOROQUINE SO4 200 MG TABLET (FP) PO SCH ×2 (10:48→22:30)
[2019-07-19] MEDS: METOCLOPRAMIDE HCL 10 MG TABLET (FP) PO SCH ×2 (12:10→17:13)
[2019-07-19] MEDS: ACETAMINOPHEN 325 MG TABLET (FP) PO PRN (17:16)
--- NOTE | 2019-07-19 17:43 | PN ---
Progress Note (short form) - Note Progress Note: still some intermittent discomfort lives alone takes plaquenil for RA Vital Signs Period Temp Pulse Resp BP Sys/Mensah Pulse Ox Last 24 Hr 97.4 F-98.6 F 62-73 15-20 116-142/62-75 98-100 cor-rrr lungs dlear abd soft,nt ext no edema 07/19/19 06:49 07/19/19 06:49 Microbiology 07/14/19 18:00 Urine For Antigen Detection Legionella Antigen - Final 07/14/19 18:00 Urine For Antigen Detection Streptococcus pneumoniae Antigen (M - Final 07/16/19 04:30 Stool Clostridioides difficile Antigen - Final 07/16/19 04:30 Stool Clostridioides difficile Toxin Assay - Final 07/16/19 04:30 Stool Salmonella/Shigella Culture - Final NO GROWTH OF SALMONELLA OR SHIGELLA SPECIES OBTAINED 07/16/19 04:30 Stool Campylobacter Culture - Final NO GROWTH OF CAMPYLOBACTER SPECIES OBTAINED 07/16/19 04:30 Stool Yersinia Culture - Final 07/16/19 04:30 Stool Vibrio Culture - Final NO GROWTH OF VIBRIO SPECIES OBTAINED 07/16/19 04:30 Stool Escherichia coli 0157 Culture - Final NO GROWTH OF E COLI 0157 OBTAINED a/p agree with r/o covid 19 agree with stool w/u (he denies recent antibiotics use) chest pain eval history of stent in october continue to observe he is stable from ID standpoint no objection d/c home with f/u of covid pcr results home isolation until reslts are back
[2019-07-19] MEDS ORDERED: INSULIN SLIDING SCALE (NOVOLOG) 1 VIAL SQ ONE (21:18)
--- NOTE | 2019-07-19 21:26 | PN ---
Progress Note, Physician History of Present Illness: No new complaints - Current Medication List Current Medications: Active Medications Acetaminophen (Tylenol -) 650 mg PO Q6H PRN PRN Reason: Fever Or Pain Last Admin: 07/19/19 17:16 Dose: 650 mg Documented by: Amlodipine Besylate (Norvasc -) 10 mg PO DAILY [facility] Last Admin: 07/19/19 10:47 Dose: 10 mg Documented by: Atorvastatin Calcium (Lipitor -) 40 mg PO HS [facility] Last Admin: 07/18/19 21:44 Dose: 40 mg Documented by: Bisacodyl (Dulcolax Suppository -) 10 mg CO DAILY PRN PRN Reason: CONSTIPATION Last Admin: 07/18/19 01:07 Dose: 10 mg Documented by: Heparin Sodium (Porcine) (Heparin -) 5,000 unit SQ BID [facility] Last Admin: 07/19/19 10:47 Dose: 5,000 unit Documented by: Hydroxychloroquine Sulfate (Plaquenil -) 200 mg PO BID [facility] Last Admin: 07/19/19 10:48 Dose: 200 mg Documented by: Insulin Aspart (Novolog Vial Sliding Scale -) 0 vial SQ [facility]; Protocol Last Admin: 07/19/19 17:54 Dose: 2 units Documented by: Lisinopril (Prinivil) 20 mg PO DAILY [facility] Last Admin: 07/19/19 10:47 Dose: 20 mg Documented by: Metoclopramide HCl (Reglan -) 10 mg PO BID@1100,1630 [facility] Last Admin: 07/19/19 17:13 Dose: 10 mg Documented by: Metoprolol Succinate (Toprol Xl -) 25 mg PO DAILY [facility] Last Admin: 07/19/19 10:47 Dose: 25 mg Documented by: Pantoprazole Sodium (Protonix -) 40 mg PO DAILY [facility] Last Admin: 07/19/19 10:47 Dose: 40 mg Documented by: Ticagrelor (Brilinta) 60 mg PO BID [facility] Last Admin: 07/19/19 10:46 Dose: 60 mg Documented by: - Objective Vital Signs: Vital Signs Temperature 98.5 F 07/19/19 20:40 Pulse Rate 75 07/19/19 20:40 Respiratory Rate 18 07/19/19 20:40 Blood Pressure 105/53 L 07/19/19 20:40 O2 Sat by Pulse Oximetry (%) 100 07/19/19 10:15 Cardiovascular: Yes: WNL, Regular Rate and Rhythm Respiratory: Yes: WNL, Regular, CTA Bilaterally Gastrointestinal: Yes: WNL, Normal Bowel Sounds, Soft Labs: CBC, BMP 07/19/19 06:49 07/19/19 06:49 Problem List - Problems (1) Chest pain Assessment/Plan: Further management as per cardio Pt w/ h/o CAD and stents CTA chest was unremarkable Pt also has covid 19 titer pending However had long d/w pt about dc planning for am and self quarantine at home until covid testing final result Code(s): R07.9 - CHEST PAIN, UNSPECIFIED (2) CAD (coronary artery disease) Assessment/Plan: Cont brilinta S/P cardiac stent < than 1 year ago Code(s): I25.10 - ATHSCL HEART DISEASE OF [place] CORONARY ARTERY W/O ANG PCTRS (3) HTN (hypertension) Assessment/Plan: BP stable Cont lisinopril/metoprolol/amlodipine Code(s): I10 - ESSENTIAL (PRIMARY) HYPERTENSION (4) HLD (hyperlipidemia) Assessment/Plan: Cont lipitor Code(s): E78.5 - HYPERLIPIDEMIA, UNSPECIFIED (5) Diabetes Code(s): E11.9 - TYPE 2 DIABETES MELLITUS WITHOUT COMPLICATIONS (6) Diarrhea Code(s): R19.7 - DIARRHEA, UNSPECIFIED
[2019-07-19] MEDS: ATORVASTATIN CA 40 MG TABLET (FP) PO SCH (22:30)
[2019-07-20] MEDS: INSULIN SLIDING SCALE (NOVOLOG) 1 VIAL SQ SCH ×2 (06:30→11:18)
[2019-07-20] MEDS ORDERED: INSULIN SLIDING SCALE (NOVOLOG) 1 VIAL SQ ONE (06:32)
[2019-07-20] MEDS ORDERED: PT OWN MED DRAWER 7, Y5N ONE (09:35)
[2019-07-20] MEDS: amLODIPine BESYLATE 10 MG TABLET (FP) PO SCH (09:42)
[2019-07-20] MEDS: TICAGRELOR 60 MG TABLET PO SCH (09:42)
[2019-07-20] MEDS: PANTOPRAZOLE 40 MG TABLET PO SCH (09:43)
[2019-07-20] MEDS: LISINOPRIL 20 MG TABLET (FP) PO SCH (09:43)
[2019-07-20] MEDS: HYDROXYCHLOROQUINE SO4 200 MG TABLET (FP) PO SCH (09:43)
[2019-07-20] MEDS: metoPROLOL SUCCINATE 25 MG TAB.SR.24H (FP) PO SCH (09:43)
[2019-07-20] MEDS: HEPARIN NA (PORCINE) 5,000 UNITS/ML 1ML VIAL SQ SCH (09:44)
[2019-07-20 10:16] VITALS: BP 124/64; PULSE 76; TEMP 98.8
[2019-07-20] MEDS: METOCLOPRAMIDE HCL 10 MG TABLET (FP) PO SCH (11:15)
== END 2019-07-20 15:57 | disposition home or self-care (01) | DRG 204 ==
LOC: JER 17:23 → JERBED 07-14 00:19 → J4S 07-14 02:01
PROVIDERS: ADMIT Internal Medicine; ATTEND Internal Medicine
DX: R06.02 Shortness of breath (principal); I25.10 Atherosclerotic heart disease of native coronary artery without angina pectoris; E11.9 Type 2 diabetes mellitus without complications; I10 Essential (primary) hypertension; R19.7 Diarrhea, unspecified; J34.89 Other specified disorders of nose and nasal sinuses; R07.9 Chest pain, unspecified; R51 Headache; D72.819 Decreased white blood cell count, unspecified; Z95.5 Presence of coronary angioplasty implant and graft; E78.5 Hyperlipidemia, unspecified; D64.9 Anemia, unspecified; E04.1 Nontoxic single thyroid nodule; M06.9 Rheumatoid arthritis, unspecified
CPT/HCPCS: 36415; 71045-TC-FY; 71046-TC-FY; 71275-TC; 74177-TC; 80053; 80061; 81003; 82272; 82550; 82728; 82962; 83036; 83605; 83615; 83690; 83721; 83735; 83880; 84100; 84443; 84484; 85025; 85027; 86140; 87045; 87046; 87177; 87186; 87209; 87324; 87449; 87798; 87804; 87807; 87899; 93005; 93010; 99285-25; J1644; J7030; Q9967